=== PATIENT | female | born 1970 | race American Indian/Alaskan Native ===

== ENCOUNTER 2021-08-02 15:20 | Inpatient (IN) | payer BC ==
[2021-08-02] MEDS ORDERED: ACETAMINOPHEN 500 MG TAB PO STA (15:44)
--- NOTE | 2021-08-02 15:45 | Event Note ---
ED Screening Note Date of service: 08/02/21 Time: 15:44 ED Screening Note: Patient complains of weakness, nausea, and cough for 4 days Tested for Covid by her PCP, however results were not back Febrile 100.3 and tachycardia noted She does admit to decreased taste Pulse ox 93% on room air This initial assessment/diagnostic orders/clinical plan/treatment(s) is/are subject to change based on patients health status, clinical progression and re- assessment by fellow clinical providers in the ED. Further treatment and workup at subsequent clinical providers discretion. Patient/guardian urged not to elope from the ED as their condition may be serious if not clinically assessed and managed. Initial orders include: Labs Chest x-ray
[2021-08-02 16:12] LABS: Basophils % (Auto) 0.3 % (0.0-1.8); Eosinophils % (Auto) 0.1 % (0.0-4.3); Hematocrit 54.1 % (30.3-42.9); Hemoglobin 17.9 gm/dl (10.1-14.3); Lymphocytes # (Auto) 1.1 K/mm3 (1.2-5.4); Lymphocytes % (Auto) 22.3 % (13.4-35.0); Mean Corpuscular HGB Conc 33 % (30-34); Mean Corpuscular Volume 99 fl (79-97); Monocytes # (Auto) 0.3 K/mm3 (0.0-0.8); Monocytes % (Auto) 5.7 % (0.0-7.3); Platelet Count 230 K/mm3 (140-440); Red Blood Count 5.45 M/mm3 (3.65-5.03); Red Cell Distribution Width 13.9 % (13.2-15.2)
--- NOTE | 2021-08-02 16:25 | XRay Report ---
CHEST 2 VIEWS INDICATION / CLINICAL INFORMATION: cough, fever. COMPARISON: None available. FINDINGS: SUPPORT DEVICES: None. HEART / MEDIASTINUM: Mildly enlarged cardiac silhouette. Evidence of prior median sternotomy. LUNGS / PLEURA: Faint multifocal patchy airspace disease, suspected to represent infection. No pneumo thorax. ADDITIONAL FINDINGS: No significant additional findings. IMPRESSION: Faint multifocal patchy airspace disease suspected to represent infection. Signer Name: Carlos March MD Signed: 08/02/2021 4:21 PM Workstation Name: [id number]
[2021-08-02 17:10] LABS: Albumin 4.5 g/dL (3.9-5); Calcium 9.2 mg/dL (8.4-10.2)
[2021-08-02] MEDS ORDERED: cefTRIAXone/NS 2 GM/100 ML 2 GM/100 ML BAG IV ONE (17:51)
[2021-08-02] MEDS ORDERED: AZITHROMYCIN/NS 500 MG/250 ML 500 MG/250 ML BAG IV ONE (17:51)
[2021-08-02] MEDS ORDERED: dexAMETHasone 4 MG/ML VIAL IV ONE (17:51)
[2021-08-02] MEDS ORDERED: SODIUM CHLORIDE 0.9% 1000 ML 1,000 ML IV ONE (18:12)
--- NOTE | 2021-08-02 18:14 | Emergency Department Report ---
- General Chief complaint: Weakness Stated complaint: WEAKNESS/DEHYDRATED Time Seen by Provider: 08/02/21 17:28 Source: patient Mode of arrival: Wheelchair Limitations: No Limitations - History of Present Illness Initial comments: 51-year-old female presents to the hospital with generalized weakness, cold sweats, decreased appetite for the past 5 days. Patient's been taking over -the-counter medications without improvement. Decreased food intake but patient try to hydrate with fluids. Patient denies loss of sense of smell. She denies history of pulmonary disease. She is a non-smoking patient denies cough or shortness of breath. She is not vaccinated for Covid. Denies known exposures to Covid. Mild nausea and one episode of loose stools without vomiting. Severity scale (0 -10): 10 - Related Data Previous Rx's Medication Instructions Recorded Last Taken Type Meclizine [Antivert] 25 mg PO TID PRN #20 tablet 08/16/15 Unknown Rx Allergies Allergy/AdvReac Type Severity Reaction Status Date / Time No Known Allergies Allergy Unverified 08/15/15 22:49 ED Review of Systems ROS: Stated complaint: WEAKNESS/DEHYDRATED Other details as noted in HPI Comment: All other systems reviewed and negative ED Past Medical Hx - Past Medical History Previous Medical History?: Yes Additional medical history: hip pain - Surgical History Past Surgical History?: No - Social History Smoking Status: Never Smoker Substance Use Type: None - Medications Home Medications: Home Medications Medication Instructions Recorded Confirmed Last Taken Type Meclizine [Antivert] 25 mg PO TID PRN #20 tablet 08/16/15 Unknown Rx ED Physical Exam - General Limitations: No Limitations - Other Other exam information: General: No acute distress Head: Atraumatic Eyes: normal appearance ENT: Moist mucous membranes Neck: Normal appearance, no midline tenderness Chest: Clear to auscultation bilaterally CV: Mild tachycardia regular rhythm Abdomen: Soft, normal bowel sounds, nontender, nondistended, no rebound or guarding Back: Normal inspection Extremity: Normal inspection, full range of motion Neuro: Alert O x 3, no facial asymmetry, speech clear, no gross motor sensory deficit Psych: Appropriate behavior Skin: No rash ED Course Vital Signs 08/02/21 08/02/21 15:38 15:40 Temperature 100.6 F H Pulse Rate 117 H 16 L Blood Pressure 118/69 O2 Sat by Pulse 93 Oximetry - Reevaluation(s) Reevaluation #1: 08/02/21 18:11 Patient has a room air saturation at rest 88% expresses increased weakness with trying to ambulate ED Medical Decision Making - Lab Data Result diagrams: 08/02/21 15:47 08/02/21 17:59 Lab Results 08/02/21 08/02/21 Range/Units 15:47 15:47 WBC 5.0 (4.5-11.0) K/mm3 RBC 5.45 H (3.65-5.03) M/mm3 Hgb 17.9 H (10.1-14.3) gm/dl Hct 54.1 H (30.3-42.9) % MCV 99 H (79-97) fl MCH 33 H (28-32) pg MCHC 33 (30-34) % RDW 13.9 (13.2-15.2) % Plt Count 230 (140-440) K/mm3 Lymph % (Auto) 22.3 (13.4-35.0) % Orange % (Auto) 5.7 (0.0-7.3) % Eos % (Auto) 0.1 (0.0-4.3) % Baso % (Auto) 0.3 (0.0-1.8) % Lymph # (Auto) 1.1 L (1.2-5.4) K/mm3 Orange # (Auto) 0.3 (0.0-0.8) K/mm3 Eos # (Auto) 0.0 (0.0-0.4) K/mm3 Baso # (Auto) 0.0 (0.0-0.1) K/mm3 Seg Neutrophils % 71.6 H (40.0-70.0) % Seg Neutrophils # 3.6 (1.8-7.7) K/mm3 Sodium 140 (137-145) mmol/L Potassium 4.7 (3.6-5.0) mmol/L Chloride 103.5 (98-107) mmol/L Carbon Dioxide 18 L (22-30) mmol/L Anion Gap 23 mmol/L BUN 18 H (7-17) mg/dL Creatinine 1.3 H (0.6-1.2) mg/dL Estimated GFR 52 ml/min BUN/Creatinine Ratio 14 % Glucose 139 H (65-100) mg/dL Calcium 9.2 (8.4-10.2) mg/dL Total Bilirubin 0.40 (0.1-1.2) mg/dL AST 32 (5-40) units/L ALT 17 (7-56) units/L Alkaline Phosphatase 68 (35-129) units/L Total Protein 7.7 (6.3-8.2) g/dL Albumin 4.5 (3.9-5) g/dL Albumin/Globulin Ratio 1.4 % - Radiology Data Radiology results: report reviewed - Medical Decision Making 51-year-old female presents to the hospital with infectious symptoms for the last 5 days. She presents with fever, hypoxia, and x-ray findings of pneumonia typical of Covid. Patient is unvaccinated. Patient treated with tylenol, Decadron, Rocephin, azithromycin, IV fluids, supplemental oxygenation. Hospitalist to admit Critical Care Time: No Critical care attestation.: If time is entered above; I have spent that time in minutes in the direct care of this critically ill patient, excluding procedure time. ED Disposition Clinical Impression: Generalized weakness, Bilateral pneumonia, Hypoxia, Suspected COVID-19 virus infection Disposition: ADMITTED INPATIENT Is pt being admited?: Yes Condition: Stable Instructions: Bacterial Pneumonia (ED) Time of Disposition: 18:18
--- NOTE | 2021-08-02 18:31 | History and Physical Report ---
History of Present Illness Chief complaint: I don't feel good History of present illness: 51 YO Female with Obesity Hypoventilation Syndrome, OA presents to ED for evaluation. Patient reports "I don't feel good". Patient states that she has experienced generalized weakness, fever, chills, decreased exercise tolerance, muscle aches, malaise over the past 5 days with persistent and worsening symptoms over the same timeframe. Patient transported to [facility] via private vehicle for further care and evaluation of the aforementioned symptoms. The patient was seen and evaluated in the emergency department. All lab and imaging studies reviewed. The patient was found to have a pulse oximetry of 87% with exertion which is consistent with acute hypoxemic respiratory failure. Chest x- ray revealed bilateral pneumonia. Patient admitted to medical floor and initiated on pneumonia protocol as well as coronavirus protocol. Patient denies chest pain, palpitation, skin rash, prolonged travel/immobility, unilateral leg swelling, calf pain, individual/family history of DVT/PE/bleeding/blood clotting disorders. No prior admission for review. All medication listed at time of admission has been reconciled. Advanced care planning conducted in ED. Past History Past Medical History: other (See HPI) Past Surgical History: No surgical history, Other (Reviewed) Social history: , lives with family Family history: hypertension Medications and Allergies Allergies Allergy/AdvReac Type Severity Reaction Status Date / Time No Known Allergies Allergy Unverified 08/15/15 22:49 Home Medications Medication Instructions Recorded Confirmed Last Taken Type Meclizine [Antivert] 25 mg PO TID PRN #20 tablet 08/16/15 Unknown Rx Active Meds: Active Medications Azithromycin (Zithromax/Ns) 500 mg in 250 mls @ 250 mls/hr IV ONCE ONE; Protocol Stop: 08/02/21 18:50 Sodium Chloride (Nacl 0.9% 1000 Ml) 1,000 mls @ 999 mls/hr IV BOLUS ONE Stop: 08/02/21 19:12 Review of Systems Constitutional: fever, fatigue, weakness, malaise Ears, nose, mouth and throat: no ear pain, no tinnitis, no decreased hearing, no nose pain, no nasal congestion, no nasal discharge Cardiovascular: no chest pain, no orthopnea, no lightheadedness Respiratory: no cough, no excessive sputum, no hemoptysis Gastrointestinal: nausea, no abdominal pain, no vomiting, no change in bowel habits, no hematemesis Genitourinary Female: no pelvic pain, no flank pain, no dysuria, no urinary frequency, no urgency Rectal: no pain, no incontinence, no bleeding Musculoskeletal: no neck stiffness, no arm numbness/tingling, no low back pain, no leg numbness/tingling Integumentary: no rash, no pruritis, no redness, no sores, no wounds, no boils Neurological: no head injury, no transient paralysis, no paralysis, no parathesias, no numbness, no tingling, no syncope Psychiatric: no anxiety, no change in sleep habits, no sleep disturbances, no hypersomnia, no change in appetite, no suicidal ideation Endocrine: no cold intolerance, no polyphagia, no excessive thirst, no nocturia Hematologic/Lymphatic: no easy bruising, no lymphadenopathy Allergic/Immunologic: no allergic rhinitis, no persistent infections, no anaphylaxis Exam - Constitutional Vitals: Temp Pulse Resp BP Pulse Ox 100.6 F H 16 L 118/69 93 08/02/21 15:40 08/02/21 15:40 08/02/21 15:38 08/02/21 15:38 General appearance: Present: mild distress, obese - EENT Eyes: Present: PERRL ENT: hearing intact, clear oral mucosa - Neck Neck: Present: supple, normal ROM - Respiratory Respiratory effort: labored, accessory muscle use, stridor Respiratory: bilateral: diminished, rhonchi - Cardiovascular Heart Sounds: Present: S1 & S2. Absent: rub, click - Extremities Extremities: pulses symmetrical, No edema Peripheral Pulses: within normal limits - Abdominal General gastrointestinal: Present: soft, non-tender, non-distended, normal bowel sounds Female genitourinary: Present: normal - Integumentary Integumentary: Present: clear, warm, dry - Musculoskeletal Musculoskeletal: generalized weakness - Psychiatric Psychiatric: appropriate mood/affect, intact judgment & insight - Neurologic Neurologic: CNII-XII intact, moves all extremities Results - Labs CBC & Chem 7: 08/02/21 15:47 08/02/21 17:59 Labs: Abnormal lab results 08/02/21 08/02/21 Range/Units 15:47 15:47 RBC 5.45 H (3.65-5.03) M/mm3 Hgb 17.9 H (10.1-14.3) gm/dl Hct 54.1 H (30.3-42.9) % MCV 99 H (79-97) fl MCH 33 H (28-32) pg Lymph # (Auto) 1.1 L (1.2-5.4) K/mm3 Seg Neutrophils % 71.6 H (40.0-70.0) % Carbon Dioxide 18 L (22-30) mmol/L BUN 18 H (7-17) mg/dL Creatinine 1.3 H (0.6-1.2) mg/dL Glucose 139 H (65-100) mg/dL Assessment and Plan - Patient Problems (1) Acute hypoxemic respiratory failure Current Visit: No Status: Acute Plan to address problem: Chest x-ray, supplemental oxygen, pulse oximetry, nebulizer therapy, noninvasive positive pressure ventilation as clinically indicated. (2) Obesity hypoventilation syndrome Current Visit: No Status: Acute Plan to address problem: Balanced diet, increase physical activity discharge, outpatient pulmonary follow-up for sleep study. (3) Bilateral pneumonia Current Visit: No Status: Acute Plan to address problem: Pneumonia protocol: Chest x-ray, CBC, CMP, IV antibiotic therapy, supplemental oxygen, pulse oximetry, nebulizer therapy, blood culture. (4) Suspected COVID-19 virus infection Current Visit: No Status: Acute Plan to address problem: Coronavirus protocol: IV antibiotic therapy, IV steroid therapy, vitamin C therapy, vitamin D therapy, zinc therapy, contact precautions, isolation precautions (5) 2019 novel coronavirus vaccination not done Current Visit: No Status: Acute Plan to address problem: Patient counseled, patient advised to undergo complete vaccination for coronavirus. Patient acknowledges understanding instructions. (6) DVT prophylaxis Current Visit: No Status: Acute Plan to address problem: SCDs bilateral lower extremities while in bed, prophylactic anticoagulation (7) Advance care planning Current Visit: No Status: Acute Plan to address problem: Disease education conducted, care plan discussed, diagnosis discussed, prognosis discussed, patient is full code, patient knowledges understanding and agreement with care plan. Patient counseled regarding undergoing coronavirus vaccination. +30 min.
[2021-08-02] MEDS ORDERED: ALBUTEROL 2.5 MG/3 ML NEBU IH PRN (18:35)
[2021-08-02] MEDS ORDERED: MECLIZINE 25 MG TAB PO PRN (18:38)
[2021-08-02 18:40] LABS: C-Reactive Protein 2.3 mg/dL (0.00-1.30)
[2021-08-02] MEDS ORDERED: cefTRIAXone/NS 2 GM/100 ML 2 GM/100 ML BAG IV SCH (19:00)
[2021-08-02] MEDS ORDERED: AZITHROMYCIN/NS 500 MG/250 ML 500 MG/250 ML BAG IV SCH (19:30)
[2021-08-02] MEDS: HYDROmorphone 1 MG/1 ML INJ IV PRN (22:57)
[2021-08-02] MEDS: ONDANSETRON 4 MG/2 ML INJ IV PRN (23:05)
[2021-08-02] MEDS: ASCORBIC ACID 500 MG TAB PO SCH (23:13)
[2021-08-02] MEDS: ZINC SULFATE 220 MG CAP PO SCH (23:13)
[2021-08-02] MEDS: methylPREDNISolone Sod Succinate 40 MG/1 ML INJ IV SCH (23:13)
[2021-08-02] MEDS: HEPARIN 5,000 UNIT/1 ML VIAL SUB-Q SCH (23:13)
[2021-08-03] MEDS: cefTRIAXone/NS 2 GM/100 ML 2 GM/100 ML BAG IV SCH (00:45)
[2021-08-03] MEDS: AZITHROMYCIN/NS 500 MG/250 ML 500 MG/250 ML BAG IV SCH (00:54)
[2021-08-03] MEDS: oxyCODONE /ACETAMINOPHEN 5-325MG TAB PO PRN ×2 (01:14→15:22)
[2021-08-03] MEDS: methylPREDNISolone Sod Succinate 40 MG/1 ML INJ IV SCH ×3 (05:52→21:05)
[2021-08-03 06:05] LABS: Basophils % (Auto) 0.3 % (0.0-1.8); Hematocrit 50.5 % (30.3-42.9); Hemoglobin 17.1 gm/dl (10.1-14.3); Lymphocytes # (Auto) 0.6 K/mm3 (1.2-5.4); Lymphocytes % (Auto) 17.2 % (13.4-35.0); Mean Corpuscular HGB Conc 34 % (30-34); Mean Corpuscular Volume 97 fl (79-97); Monocytes # (Auto) 0.1 K/mm3 (0.0-0.8); Platelet Count 224 K/mm3 (140-440); Red Blood Count 5.19 M/mm3 (3.65-5.03); Red Cell Distribution Width 13.9 % (13.2-15.2)
[2021-08-03 06:26] LABS: Calcium 8.8 mg/dL (8.4-10.2)
[2021-08-03] MEDS: ZINC SULFATE 220 MG CAP PO SCH ×2 (09:09→21:05)
[2021-08-03] MEDS: ASCORBIC ACID 500 MG TAB PO SCH ×2 (09:09→21:05)
[2021-08-03] MEDS: HEPARIN 5,000 UNIT/1 ML VIAL SUB-Q SCH ×2 (09:10→21:05)
[2021-08-03] MEDS: CHOLECALCIFEROL (VIT D3) 1000 UNIT (25 mcg) TAB PO SCH (09:10)
[2021-08-03] MEDS: ONDANSETRON 4 MG/2 ML INJ IV PRN ×2 (09:10→21:05)
[2021-08-03] MEDS: ACETAMINOPHEN 325 MG TAB PO PRN (09:12)
--- NOTE | 2021-08-03 11:50 | Consultation ---
History of Present Illness - Reason for Consult Consult date: 08/03/21 b/l pneumonia Requesting physician: CHRISTIANO ENGLISH - History of Present Illness The patient is a 51-year-old female with obesity hypoventilation syndrome, obesity admitted to the hospital with complaints of not feeling well. Also having generalized weakness, fever, chills and muscle aches. Upon evaluation in the ER, chest x-ray revealed bilateral pneumonia, also found to be hypoxic. Low-grade fever. Labs revealed leukopenia, D-dimer 286, ferritin 940, CRP 2.3, LDH 365. Currently receiving empiric antibiotics as well as steroids. Infectious diseases was consulted for additional evaluation. COVID-19 PCR is pending. Review of Systems: reviewed in the chart, unable to obtain, minimize risk of transmission Past History Past Medical History: other (See HPI) Past Surgical History: No surgical history, Other (Reviewed) Social history: , lives with family Family history: hypertension Medications and Allergies Allergies Allergy/AdvReac Type Severity Reaction Status Date / Time No Known Allergies Allergy Unverified 08/15/15 22:49 Home Medications Medication Instructions Recorded Confirmed Last Taken Type Meclizine [Antivert] 25 mg PO TID PRN #20 tablet 08/16/15 08/03/21 Unknown Rx Active Meds: Active Medications Acetaminophen (Acetaminophen 325 Mg Tab) 650 mg PO Q4H PRN PRN Reason: Pain MILD(1-3)/Fever >100.5/RATLIFF Last Admin: 08/03/21 09:12 Dose: 650 mg Documented by: Albuterol (Albuterol 2.5 Mg/3 Ml Nebu) 2.5 mg IH Q4HRT PRN PRN Reason: Shortness Of Breath Ascorbic Acid (Ascorbic Acid 500 Mg Tab) 500 mg PO BID [facility] Last Admin: 08/03/21 09:09 Dose: 500 mg Documented by: Cholecalciferol (Cholecalciferol (Vit D3) 1000 Unit (25 Mcg) Tab) 1,000 unit PO QDAY [facility] Last Admin: 08/03/21 09:10 Dose: 1,000 unit Documented by: Heparin Sodium (Porcine) (Heparin 5,000 Unit/1 Ml Vial) 5,000 unit SUB-Q Q12HR [facility] Last Admin: 08/03/21 09:10 Dose: 5,000 unit Documented by: Hydromorphone HCl (Hydromorphone 1 Mg/1 Ml Inj) 0.5 mg IV Q23H PRN PRN Reason: Pain , Severe (7-10) Last Admin: 08/02/21 22:57 Dose: 0.5 mg Documented by: Ceftriaxone Sodium (Rocephin/Ns 2 Gm/100 Ml) 2 gm in 100 mls @ 200 mls/hr IV Q24H [facility]; Protocol Stop: 08/07/21 01:29 Last Admin: 08/03/21 00:45 Dose: 200 mls/hr Documented by: Azithromycin (Zithromax/Ns) 500 mg in 250 mls @ 250 mls/hr IV Q24H [facility]; Protoc ol Stop: 08/07/21 01:59 Last Admin: 08/03/21 00:54 Dose: 250 mls/hr Documented by: Meclizine HCl (Meclizine 25 Mg Tab) 25 mg PO TID PRN PRN Reason: Vertigo Methylprednisolone Sodium Succinate (Methylprednisolone Sod Succinate 40 Mg/1 Ml Inj) 40 mg IV Q8H [facility] Last Admin: 08/03/21 05:52 Dose: 40 mg Documented by: Ondansetron HCl (Ondansetron 4 Mg/2 Ml Inj) 4 mg IV Q8H PRN PRN Reason: Nausea And Vomiting Last Admin: 08/03/21 09:10 Dose: 4 mg Documented by: Oxycodone/Acetaminophen (Oxycodone /Acetaminophen 5-325mg Tab) 1 tab PO Q12H PRN PRN Reason: Pain, Moderate (4-6) Last Admin: 08/03/21 01:14 Dose: 1 tab Documented by: Sodium Chloride (Sodium Chloride 0.9% 10 Ml Flush Syringe) 10 ml IV BID [facility] Last Admin: 08/03/21 09:17 Dose: 10 ml Documented by: Sodium Chloride (Sodium Chloride 0.9% 10 Ml Flush Syringe) 10 ml IV PRN PRN PRN Reason: LINE FLUSH Zinc Sulfate (Zinc Sulfate 220 Mg Cap) 220 mg PO BID [facility] Last Admin: 08/03/21 09:09 Dose: 220 mg Documented by: Physical Examination - Physical Exam Narrative exam: Physical Exam (reviewed in chart to minimize risk of transmission) Constitutional: deferred Head, Ears, Nose: deferred Eyes: deferred Neck: deferred Oral: deferred Cardiovascular: deferred Respiratory: deferred GI: deferred Musculoskeletal: deferred Skin: deferred Hem/Lymphatic: deferred Psych: deferred Neurological: deferred - Constitutional Vitals: Vital Signs Temp Pulse Resp BP Pulse Ox 98.1 F 88 18 106/59 94 08/03/21 04:56 08/03/21 04:56 08/03/21 04:56 08/03/21 04:56 08/03/21 04:56 Temperature -Last 24 Hours Temperature 98.1 F Temperature 99.9 F Temperature 99.9 F Temperature 100.6 F Results - Labs CBC & Chem 7: 08/03/21 05:52 08/03/21 05:52 Labs: Abnormal lab results 08/02/21 08/02/21 08/02/21 Range/Units 15:47 15:47 17:59 WBC (4.5-11.0) K/mm3 RBC 5.45 H (3.65-5.03) M/mm3 Hgb 17.9 H (10.1-14.3) gm/dl Hct 54.1 H (30.3-42.9) % MCV 99 H (79-97) fl MCH 33 H (28-32) pg Lymph # (Auto) 1.1 L (1.2-5.4) K/mm3 Seg Neutrophils % 71.6 H (40.0-70.0) % D-Dimer 286.28 H (0-234) ng/mlDDU Potassium (3.6-5.0) mmol/L Carbon Dioxide 18 L (22-30) mmol/L BUN 18 H (7-17) mg/dL Creatinine 1.3 H (0.6-1.2) mg/dL Glucose 139 H (65-100) mg/dL Ferritin (10.0-200.0) ng/mL Lactate Dehydrogenase (91-180) units/L C-Reactive Protein (0.00-1.30) mg/dL 08/02/21 08/02/21 08/03/21 Range/Units 17:59 17:59 05:52 WBC 3.7 L (4.5-11.0) K/mm3 RBC 5.19 H (3.65-5.03) M/mm3 Hgb 17.1 H (10.1-14.3) gm/dl Hct 50.5 H (30.3-42.9) % MCV (79-97) fl MCH 33 H (28-32) pg Lymph # (Auto) 0.6 L (1.2-5.4) K/mm3 Seg Neutrophils % 79.5 H (40.0-70.0) % D-Dimer (0-234) ng/mlDDU Potassium (3.6-5.0) mmol/L Carbon Dioxide (22-30) mmol/L BUN (7-17) mg/dL Creatinine (0.6-1.2) mg/dL Glucose 130 H (65-100) mg/dL Ferritin 940.8 H (10.0-200.0) ng/mL Lactate Dehydrogenase 365 H (91-180) units/L C-Reactive Protein 2.30 H (0.00-1.30) mg/dL 08/03/21 Range/Units 05:52 WBC (4.5-11.0) K/mm3 RBC (3.65-5.03) M/mm3 Hgb (10.1-14.3) gm/dl Hct (30.3-42.9) % MCV (79-97) fl MCH (28-32) pg Lymph # (Auto) (1.2-5.4) K/mm3 Seg Neutrophils % (40.0-70.0) % D-Dimer (0-234) ng/mlDDU Potassium 5.1 H (3.6-5.0) mmol/L Carbon Dioxide (22-30) mmol/L BUN 27 H (7-17) mg/dL Creatinine (0.6-1.2) mg/dL Glucose 159 H (65-100) mg/dL Ferritin (10.0-200.0) ng/mL Lactate Dehydrogenase (91-180) units/L C-Reactive Protein (0.00-1.30) mg/dL - Imaging and Cardiology Chest x-ray: report reviewed, image reviewed (Faint b/l patchy pna) Assessment and Plan Cultures: SARS CoV2 PCR: Pending 07/25/2021 blood culture: In process A/P: 51-year-old female with: #Bilateral pneumonia: Likely related to COVID-19, test is pending at this time. #Acute hypoxic respiratory failure: Requiring nasal cannula #Mild OMID: Improved #Obesity #Leukopenia: Likely related to viral illness Recs: f/y COVID-19 PCR Already on steroids, continue for total 10 days IV remdesivir x 5 days ordered given high suspicion for COVID-19 prophylactic anticoagulation based on d-dimer per hospital protocol if procalcitonin is low, abx not needed trend ferritin, d-dimer, CRP every 2-3 days Allyson Bolanos MD, FACP [facility] ([facility] O: [phone] F: [phone]
--- NOTE | 2021-08-03 16:16 | Progress Note ---
Assessment and Plan Assessment and plan: 51-year-old lady with no past medical history who presents with 5 days of weakness, decreased appetite, and body aches who presented to the ED was found to have Covid. #Acute hypoxic respiratory failure -hypoxic on presentation to ED -currently on nasal cannula 3 L/min -will wean as tolerated -continue IV steroids -Likely secondary to COVID pneumonia #Sepsis -UA and BCx ordered -likely 2/2 to COVID infection -currently on azithromycin and rocephin for PNA, will discontinue antibiotics if improved -procalcitonin pending #COVID-19 infection #COVID-19 unvaccinated #COVID-19 pneumonia -COVID PCR positive 08/03 -continue isolation precautions per COVID protocol -continue vitamins and steroid for now -will start Remdesivir -ID following, assistance appreciated Disposition Plan: Continued medical management Total Time Spent with Patient (Minutes): 25 minutes History Interval history: No acute events overnight. Patient reports feeling better. Still continues to have body aches and a mild headache. Hospitalist Physical - Physical exam Narrative exam: GENERAL: Well-developed well-nourished. Lying in bed in no acute distress. HEENT: Nasal cannula at 4 L/min CHEST/LUNGS: Coarse breath sounds bilaterally. HEART/CARDIOVASCULAR: RRR. No murmur, rubs or gallops appreciated. ABDOMEN: +BS. NT/ND. NEURO: No focal motor deficit. Follows all commands and is ambulatory. MUSCULOSKELETAL: No joint effusion EXTREMITIES: No cyanosis, clubbing or edema. PSYCH: Cooperative. - Constitutional Vitals: Temp Pulse Resp BP Pulse Ox 99.2 F 52 L 22 96/53 97 08/03/21 12:02 08/03/21 12:02 08/03/21 12:02 08/03/21 12:02 08/03/21 16:00 General appearance: Present: mild distress, obese - Allied Health Allied health notes reviewed: nursing Results - Labs CBC & Chem 7: 08/03/21 05:52 08/03/21 05:52 Labs: Laboratory Last Values WBC 3.7 K/mm3 (4.5-11.0) L 08/03/21 05:52 RBC 5.19 M/mm3 (3.65-5.03) H 08/03/21 05:52 Hgb 17.1 gm/dl (10.1-14.3) H 08/03/21 05:52 Hct 50.5 % (30.3-42.9) H 08/03/21 05:52 MCV 97 fl (79-97) 08/03/21 05:52 MCH 33 pg (28-32) H 08/03/21 05:52 MCHC 34 % (30-34) 08/03/21 05:52 RDW 13.9 % (13.2-15.2) 08/03/21 05:52 Plt Count 224 K/mm3 (140-440) 08/03/21 05:52 Lymph % (Auto) 17.2 % (13.4-35.0) 08/03/21 05:52 Dickson % (Auto) 3.0 % (0.0-7.3) 08/03/21 05:52 Eos % (Auto) 0.0 % (0.0-4.3) 08/03/21 05:52 Baso % (Auto) 0.3 % (0.0-1.8) 08/03/21 05:52 Lymph # (Auto) 0.6 K/mm3 (1.2-5.4) L 08/03/21 05:52 Dickson # (Auto) 0.1 K/mm3 (0.0-0.8) 08/03/21 05:52 Eos # (Auto) 0.0 K/mm3 (0.0-0.4) 08/03/21 05:52 Baso # (Auto) 0.0 K/mm3 (0.0-0.1) 08/03/21 05:52 Seg Neutrophils % 79.5 % (40.0-70.0) H 08/03/21 05:52 Seg Neutrophils # 2.9 K/mm3 (1.8-7.7) 08/03/21 05:52 D-Dimer 286.28 ng/mlDDU (0-234) H 08/02/21 17:59 Sodium 141 mmol/L (137-145) 08/03/21 05:52 Potassium 5.1 mmol/L (3.6-5.0) H 08/03/21 05:52 Chloride 105.9 mmol/L (98-107) 08/03/21 05:52 Carbon Dioxide 24 mmol/L (22-30) 08/03/21 05:52 Anion Gap 16 mmol/L 08/03/21 05:52 BUN 27 mg/dL (7-17) H 08/03/21 05:52 Creatinine 1.2 mg/dL (0.6-1.2) 08/03/21 05:52 Estimated GFR 57 ml/min 08/03/21 05:52 BUN/Creatinine Ratio 23 % 08/03/21 05:52 Glucose 159 mg/dL (65-100) H 08/03/21 05:52 Calcium 8.8 mg/dL (8.4-10.2) 08/03/21 05:52 Ferritin 940.8 ng/mL (10.0-200.0) H 08/02/21 17:59 Total Bilirubin 0.40 mg/dL (0.1-1.2) 08/02/21 15:47 AST 32 units/L (5-40) 08/02/21 15:47 ALT 17 units/L (7-56) 08/02/21 15:47 Alkaline Phosphatase 68 units/L (35-129) 08/02/21 15:47 Lactate Dehydrogenase 365 units/L (91-180) H 08/02/21 17:59 C-Reactive Protein 2.30 mg/dL (0.00-1.30) H 08/02/21 17:59 Total Protein 7.7 g/dL (6.3-8.2) 08/02/21 15:47 Albumin 4.5 g/dL (3.9-5) 08/02/21 15:47 Albumin/Globulin Ratio 1.4 % 08/02/21 15:47 Procalcitonin 0.47 ng/mL (<0.15) 08/02/21 17:59 Coronavirus (PCR) Positive (Negative) A 08/03/21 Unknown Microbiology: Microbiology 08/02/21 17:59 Peripheral/Venous Blood Culture - Preliminary Culture in Progress 08/02/21 17:59 Peripheral/Venous Blood Culture - Preliminary Culture in Progress Bennett/IV: Voiding Method Toilet Active Medications - Current Medications Current Medications: Generic Name Dose Route Start Last Admin Trade Name Freq PRN Reason Stop Dose Admin Acetaminophen 650 mg 08/02/21 18:35 08/03/21 09:12 Acetaminophen 325 Mg Tab PO 650 mg Q4H PRN Administration Pain MILD(1-3)/Fever >100.5/RATLIFF Albuterol 2.5 mg 08/02/21 18:35 Albuterol 2.5 Mg/3 Ml Nebu IH Q4HRT PRN Shortness Of Breath Ascorbic Acid 500 mg 08/02/21 22:00 08/03/21 09:09 Ascorbic Acid 500 Mg Tab PO 500 mg BID REMY Administration Cholecalciferol 1,000 unit 08/03/21 10:00 08/03/21 09:10 Cholecalciferol (Vit D3) 1000 Unit (25 Mcg) Tab PO 1,000 unit QDAY REMY Administration Heparin Sodium (Porcine) 5,000 unit 08/02/21 22:00 08/03/21 09:10 Heparin 5,000 Unit/1 Ml Vial SUB-Q 5,000 unit Q12HR REMY Administration Hydromorphone HCl 0.5 mg 08/02/21 18:35 08/02/21 22:57 Hydromorphone 1 Mg/1 Ml Inj IV 0.5 mg Q23H PRN Administration Pain , Severe (7-10) Ceftriaxone Sodium 2 gm in 100 mls @ 200 mls/hr 08/03/21 01:00 08/03/21 00:45 Rocephin/Ns 2 Gm/100 Ml IV 08/07/21 01:29 200 mls/hr Q24H REMY Administration Protocol Azithromycin 500 mg in 250 mls @ 250 mls/hr 08/03/21 01:00 08/03/21 00:54 Zithromax/Ns IV 08/07/21 01:59 250 mls/hr Q24H REMY Administration Protocol REMDESIVIR 200 mg/ Sodium 250 mls @ 500 mls/hr 08/03/21 17:00 Chloride IV 08/03/21 17:30 ONCE@1700 NR REMDESIVIR 100 mg/ Sodium 250 mls @ 500 mls/hr 08/04/21 21:00 Chloride IV 08/07/21 21:29 Q24HR@2100 REMY Meclizine HCl 25 mg 08/02/21 18:38 Meclizine 25 Mg Tab PO TID PRN Vertigo Methylprednisolone Sodium Succinate 40 mg 08/02/21 22:00 08/03/21 15:29 Methylprednisolone Sod Succinate 40 Mg/1 Ml Inj IV 40 mg Q8H REMY Administration Ondansetron HCl 4 mg 08/02/21 18:35 08/03/21 09:10 Ondansetron 4 Mg/2 Ml Inj IV 4 mg Q8H PRN Administration Nausea And Vomiting Oxycodone/Acetaminophen 1 tab 08/02/21 18:35 08/03/21 15:22 Oxycodone /Acetaminophen 5-325mg Tab PO 1 tab Q12H PRN Administration Pain, Moderate (4-6) Sodium Chloride 10 ml 08/02/21 22:00 08/03/21 09:17 Sodium Chloride 0.9% 10 Ml Flush Syringe IV 10 ml BID REMY Administration Sodium Chloride 10 ml 08/02/21 18:35 Sodium Chloride 0.9% 10 Ml Flush Syringe IV PRN PRN LINE FLUSH Sodium Chloride 50 ml 08/04/21 21:00 Sodium Chloride 0.9% 50 Ml Ivpb IV 08/07/21 21:01 Q24HR@2100 REMY Sodium Chloride 50 ml 08/03/21 17:00 Sodium Chloride 0.9% 50 Ml Ivpb IV 08/03/21 17:01 Q24HR@1700 REMY Zinc Sulfate 220 mg 08/02/21 22:00 08/03/21 09:09 Zinc Sulfate 220 Mg Cap PO 220 mg BID REMY Administration
[2021-08-03] MEDS ORDERED: REMDESIVIR 200 MG in SODIUM CHLORIDE 0.9% 250ML 250 ML IV NR (17:00)
[2021-08-03] MEDS ORDERED: SODIUM CHLORIDE 0.9% 50 ML IVPB IV SCH (17:00)
[2021-08-03] MEDS: HYDROmorphone 1 MG/1 ML INJ IV PRN (21:13)
[2021-08-04] MEDS: cefTRIAXone/NS 2 GM/100 ML 2 GM/100 ML BAG IV SCH (01:00)
[2021-08-04] MEDS: AZITHROMYCIN/NS 500 MG/250 ML 500 MG/250 ML BAG IV SCH (01:24)
[2021-08-04] MEDS: HYDROmorphone 1 MG/1 ML INJ IV PRN ×2 (05:16→14:38)
[2021-08-04] MEDS: methylPREDNISolone Sod Succinate 40 MG/1 ML INJ IV SCH ×3 (05:17→23:48)
[2021-08-04 07:14] LABS: Hemoglobin 16.4 gm/dl (10.1-14.3); Mean Corpuscular HGB Conc 34 % (30-34); Mean Corpuscular Volume 96 fl (79-97); Platelet Count 242 K/mm3 (140-440); Red Blood Count 5.01 M/mm3 (3.65-5.03)
[2021-08-04 07:32] LABS: Alanine Aminotransferase 15 units/L (7-56); Albumin 3.5 g/dL (3.9-5); BUN/Creatinine Ratio 37; Blood Urea Nitrogen 33 mg/dL (7-17); Calcium 8.7 mg/dL (8.4-10.2); Hemolysis Index 9
--- NOTE | 2021-08-04 07:49 | Progress Note ---
Assessment and Plan Assessment and plan: 51-year-old lady with no past medical history who presents with 5 days of weakness, decreased appetite, and body aches who presented to the ED was found to have COVID. #Acute hypoxic respiratory failure -hypoxic on presentation to ED -currently on nasal cannula 3 L/min -will wean as tolerated -continue IV steroids -Likely secondary to COVID pneumonia #Sepsis -afebrile, WBC improved -UA ordered -BCx NGTD x 24hrs -likely 2/2 to COVID infection -currently on azithromycin and rocephin for PNA, will discontinue antibiotics if improved after 48hrs -procalcitonin 0.47 #COVID-19 infection #COVID-19 unvaccinated #COVID-19 pneumonia -COVID PCR positive 08/03 -continue isolation precautions per COVID protocol -continue vitamins and steroid for now -Remdesivir (2 of 5) -ID following, assistance appreciated #Nausea and vomiting -Likely secondary to above infection -No abdominal symptoms -As needed Zofran Disposition Plan: Continue medical management Total Time Spent with Patient (Minutes): 20 minutes History Interval history: No acute events overnight. Patient reports feeling better. She still continues to be nauseous and had one episode of vomiting this morning. Hospitalist Physical - Physical exam Narrative exam: GENERAL: Well-developed well-nourished. Lying in bed in no acute distress. HEENT: Nasal cannula at 3 L/min CHEST/LUNGS: Coarse breath sounds bilaterally. HEART/CARDIOVASCULAR: RRR. No murmur, rubs or gallops appreciated. ABDOMEN: +BS. NT/ND. EXTREMITIES: No cyanosis, clubbing or edema. PSYCH: Cooperative. - Constitutional Vitals: Temp Pulse Resp BP Pulse Ox 98.5 F 80 20 105/56 94 08/04/21 05:04 08/04/21 05:04 08/04/21 05:04 08/04/21 05:04 08/04/21 05:04 General appearance: Present: mild distress, obese Results - Labs CBC & Chem 7: 08/04/21 07:00 08/04/21 07:00 Labs: Laboratory Last Values WBC 5.8 K/mm3 (4.5-11.0) 08/04/21 07:00 RBC 5.01 M/mm3 (3.65-5.03) 08/04/21 07:00 Hgb 16.4 gm/dl (10.1-14.3) H 08/04/21 07:00 Hct 48.0 % (30.3-42.9) H 08/04/21 07:00 MCV 96 fl (79-97) 08/04/21 07:00 MCH 33 pg (28-32) H 08/04/21 07:00 MCHC 34 % (30-34) 08/04/21 07:00 RDW 14.0 % (13.2-15.2) 08/04/21 07:00 Plt Count 242 K/mm3 (140-440) 08/04/21 07:00 Lymph % (Auto) 17.2 % (13.4-35.0) 08/03/21 05:52 Hall % (Auto) 3.0 % (0.0-7.3) 08/03/21 05:52 Eos % (Auto) 0.0 % (0.0-4.3) 08/03/21 05:52 Baso % (Auto) 0.3 % (0.0-1.8) 08/03/21 05:52 Lymph # (Auto) 0.6 K/mm3 (1.2-5.4) L 08/03/21 05:52 Hall # (Auto) 0.1 K/mm3 (0.0-0.8) 08/03/21 05:52 Eos # (Auto) 0.0 K/mm3 (0.0-0.4) 08/03/21 05:52 Baso # (Auto) 0.0 K/mm3 (0.0-0.1) 08/03/21 05:52 Seg Neutrophils % 79.5 % (40.0-70.0) H 08/03/21 05:52 Seg Neutrophils # 2.9 K/mm3 (1.8-7.7) 08/03/21 05:52 D-Dimer 286.28 ng/mlDDU (0-234) H 08/02/21 17:59 Sodium 141 mmol/L (137-145) 08/04/21 07:00 Potassium 4.8 mmol/L (3.6-5.0) 08/04/21 07:00 Chloride 107.0 mmol/L (98-107) 08/04/21 07:00 Carbon Dioxide 26 mmol/L (22-30) 08/04/21 07:00 Anion Gap 13 mmol/L 08/04/21 07:00 BUN 33 mg/dL (7-17) H 08/04/21 07:00 Creatinine 0.9 mg/dL (0.6-1.2) 08/04/21 07:00 Estimated GFR > 60 ml/min 08/04/21 07:00 BUN/Creatinine Ratio 37 % 08/04/21 07:00 Glucose 143 mg/dL (65-100) H 08/04/21 07:00 Calcium 8.7 mg/dL (8.4-10.2) 08/04/21 07:00 Ferritin 940.8 ng/mL (10.0-200.0) H 08/02/21 17:59 Total Bilirubin 0.30 mg/dL (0.1-1.2) 08/04/21 07:00 AST 27 units/L (5-40) 08/04/21 07:00 ALT 15 units/L (7-56) 08/04/21 07:00 Alkaline Phosphatase 59 units/L (35-129) 08/04/21 07:00 Lactate Dehydrogenase 365 units/L (91-180) H 08/02/21 17:59 C-Reactive Protein 2.30 mg/dL (0.00-1.30) H 08/02/21 17:59 Total Protein 7.2 g/dL (6.3-8.2) 08/04/21 07:00 Albumin 3.5 g/dL (3.9-5) L 08/04/21 07:00 Albumin/Globulin Ratio 0.9 % 08/04/21 07:00 Procalcitonin 0.47 ng/mL (<0.15) 08/02/21 17:59 Coronavirus (PCR) Positive (Negative) A 08/03/21 Unknown Microbiology: Microbiology 08/02/21 17:59 Peripheral/Venous Blood Culture - Preliminary NO GROWTH AFTER 24 HOURS 08/02/21 17:59 Peripheral/Venous Blood Culture - Preliminary NO GROWTH AFTER 24 HOURS Bennett/IV: Voiding Method Toilet Active Medications - Current Medications Current Medications: Generic Name Dose Route Start Last Admin Trade Name Freq PRN Reason Stop Dose Admin Acetaminophen 650 mg 08/02/21 18:35 08/03/21 09:12 Acetaminophen 325 Mg Tab PO 650 mg Q4H PRN Administration Pain MILD(1-3)/Fever >100.5/RATLIFF Albuterol 2.5 mg 08/02/21 18:35 Albuterol 2.5 Mg/3 Ml Nebu IH Q4HRT PRN Shortness Of Breath Ascorbic Acid 500 mg 08/02/21 22:00 08/03/21 21:05 Ascorbic Acid 500 Mg Tab PO 500 mg BID REMY Administration Cholecalciferol 1,000 unit 08/03/21 10:00 08/03/21 09:10 Cholecalciferol (Vit D3) 1000 Unit (25 Mcg) Tab PO 1,000 unit QDAY REMY Administration Enoxaparin Sodium 30 mg 08/04/21 10:00 Enoxaparin 30 Mg/0.3 Ml Inj SUB-Q QDAY [facility] Protocol Hydromorphone HCl 0.5 mg 08/02/21 18:35 08/04/21 05:16 Hydromorphone 1 Mg/1 Ml Inj IV 0.5 mg Q23H PRN Administration Pain , Severe (7-10) Ceftriaxone Sodium 2 gm in 100 mls @ 200 mls/hr 08/03/21 01:00 08/04/21 02:28 Rocephin/Ns 2 Gm/100 Ml IV 08/07/21 01:29 Infused Q24H [facility] Infusion Protocol Azithromycin 500 mg in 250 mls @ 250 mls/hr 08/03/21 01:00 08/04/21 02:29 Zithromax/Ns IV 08/07/21 01:59 Infused Q24H [facility] Infusion Protocol REMDESIVIR 100 mg/ Sodium 250 mls @ 500 mls/hr 08/04/21 21:00 Chloride IV 08/07/21 21:29 Q24HR@2100 [facility] Meclizine HCl 25 mg 08/02/21 18:38 Meclizine 25 Mg Tab PO TID PRN Vertigo Methylprednisolone Sodium Succinate 40 mg 08/02/21 22:00 08/04/21 05:17 Methylprednisolone Sod Succinate 40 Mg/1 Ml Inj IV 40 mg Q8H REMY Administration Ondansetron HCl 4 mg 08/02/21 18:35 08/03/21 21:05 Ondansetron 4 Mg/2 Ml Inj IV 4 mg Q8H PRN Administration Nausea And Vomiting Oxycodone/Acetaminophen 1 tab 08/02/21 18:35 08/03/21 15:22 Oxycodone /Acetaminophen 5-325mg Tab PO 1 tab Q12H PRN Administration Pain, Moderate (4-6) Sodium Chloride 10 ml 08/02/21 22:00 08/03/21 21:06 Sodium Chloride 0.9% 10 Ml Flush Syringe IV 10 ml BID REMY Administration Sodium Chloride 10 ml 08/02/21 18:35 Sodium Chloride 0.9% 10 Ml Flush Syringe IV PRN PRN LINE FLUSH Sodium Chloride 50 ml 08/04/21 21:00 Sodium Chloride 0.9% 50 Ml Ivpb IV 08/07/21 21:01 Q24HR@2100 REMY Zinc Sulfate 220 mg 08/02/21 22:00 08/03/21 21:05 Zinc Sulfate 220 Mg Cap PO 220 mg BID REMY Administration
[2021-08-04] MEDS: CHOLECALCIFEROL (VIT D3) 1000 UNIT (25 mcg) TAB PO SCH (09:50)
[2021-08-04] MEDS: ASCORBIC ACID 500 MG TAB PO SCH ×2 (09:50→23:47)
[2021-08-04] MEDS: ENOXAPARIN 40 MG/0.4 ML INJ SUB-Q SCH (09:50)
[2021-08-04] MEDS: ZINC SULFATE 220 MG CAP PO SCH ×2 (09:50→23:46)
[2021-08-04] MEDS ORDERED: ENOXAPARIN 30 MG/0.3 ML INJ SUB-Q SCH (10:00)
--- NOTE | 2021-08-04 14:12 | Progress Note ---
Assessment and Plan Cultures: SARS CoV2 PCR: Positive 07/25/2021 blood culture: No growth A/P: 51-year-old female with: #Bilateral pneumonia secondary to COVID-19: hypoxic requiring admission, oxygen and steroids. #Acute hypoxic respiratory failure: Requiring nasal cannula #Mild OMID: Improved #Obesity #Leukopenia: Likely related to viral illness Recs: on steroids, continue for total 10 days IV remdesivir, D2 prophylactic anticoagulation based on d-dimer per hospital protocol Procalcitonin moderately elevated, complete 5 days of empiric antibiotics trend d-dimer, CRP every 2-3 days Allyson Bolanos MD, FACP [facility] ([facility] O: [phone] F: [phone] Subjective Date of service: 08/04/21 Interval history: Afebrile. Remains on oxygen with nasal cannula. Procalcitonin 0.38. Objective - Exam Narrative Exam: Physical Exam (reviewed in chart to minimize risk of transmission) Constitutional: deferred Head, Ears, Nose: deferred Eyes: deferred Neck: deferred Oral: deferred Cardiovascular: deferred Respiratory: deferred GI: deferred Musculoskeletal: deferred Skin: deferred Hem/Lymphatic: deferred Psych: deferred Neurological: deferred - Constitutional Vitals: Vital Signs Temp Pulse Resp BP Pulse Ox 98.5 F 80 20 105/56 94 08/04/21 05:04 08/04/21 05:04 08/04/21 05:04 08/04/21 05:04 08/04/21 08:10 Temperature -Last 24 Hours Temperature 98.5 F Temperature 98.0 F Temperature 98.6 F - Labs CBC & Chem 7: 08/04/21 07:00 08/04/21 07:00 Labs: Abnormal lab results 08/03/21 08/04/21 08/04/21 Range/Units Unknown 07:00 07:00 Hgb 16.4 H (10.1-14.3) gm/dl Hct 48.0 H (30.3-42.9) % MCH 33 H (28-32) pg BUN 33 H (7-17) mg/dL Glucose 143 H (65-100) mg/dL Albumin 3.5 L (3.9-5) g/dL Coronavirus (PCR) Positive A (Negative)
[2021-08-04] MEDS: ONDANSETRON 4 MG/2 ML INJ IV PRN (14:38)
[2021-08-04] MEDS: oxyCODONE /ACETAMINOPHEN 5-325MG TAB PO PRN (20:51)
[2021-08-04] MEDS: SODIUM CHLORIDE 0.9% 50 ML IVPB IV SCH (23:26)
[2021-08-04] MEDS: REMDESIVIR 100 MG in SODIUM CHLORIDE 0.9% 250ML 250 ML IV SCH (23:26)
[2021-08-05] MEDS: AZITHROMYCIN/NS 500 MG/250 ML 500 MG/250 ML BAG IV SCH (01:11)
[2021-08-05] MEDS: ONDANSETRON 4 MG/2 ML INJ IV PRN ×4 (01:15→22:16)
[2021-08-05] MEDS: HYDROmorphone 1 MG/1 ML INJ IV PRN ×2 (01:27→22:15)
[2021-08-05] MEDS: cefTRIAXone/NS 2 GM/100 ML 2 GM/100 ML BAG IV SCH (02:09)
[2021-08-05] MEDS: methylPREDNISolone Sod Succinate 40 MG/1 ML INJ IV SCH ×3 (05:13→22:58)
--- NOTE | 2021-08-05 07:37 | Progress Note ---
Assessment and Plan Assessment and plan: 51-year-old lady with no past medical history who presents with 5 days of weakness, decreased appetite, and body aches who presented to the ED was found to have COVID. #Acute hypoxic respiratory failure -hypoxic on presentation to ED -currently on nasal cannula 3 L/min -will wean as tolerated -continue IV steroids -Likely secondary to COVID pneumonia #Sepsis -afebrile, WBC improved -UA ordered -BCx NGTD x 48hrs -likely 2/2 to COVID infection vs PNA #COVID-19 infection #COVID-19 unvaccinated #COVID-19 pneumonia -COVID PCR positive 08/03 -continue isolation precautions per COVID protocol -continue vitamins and steroid for now -Remdesivir (3 of 5) -d-dimer normalized, ferritin elevated; will recheck q3d -ID signed off, will re-consult if change in patient status #Pneumonia -procalcitonin 0.3 -will continue azithromycin and rocephin for 5 days total #OMID-resolved -Cr 0.8 today -likely 2/2 to vasomotor nephropathy #Nausea and vomiting -Likely secondary to above infection -No abdominal symptoms -As needed Zofran Disposition Plan: Continue medical management Total Time Spent with Patient (Minutes): 20 minutes History Interval history: No acute events overnight. Being unable to keep food down and feeling more tired today. Hospitalist Physical - Physical exam Narrative exam: GENERAL: Well-developed well-nourished. Lying in bed in no acute distress. HEENT: Nasal cannula at 3 L/min CHEST/LUNGS: Coarse breath sounds bilaterally. HEART/CARDIOVASCULAR: RRR. No murmur, rubs or gallops appreciated. ABDOMEN: + Overactive BS. NT/ND. EXTREMITIES: No cyanosis, clubbing or edema. PSYCH: Cooperative. - Constitutional Vitals: Temp Pulse Resp BP Pulse Ox 98.0 F 80 20 120/67 95 08/05/21 04:36 08/04/21 21:49 08/05/21 04:36 08/05/21 04:36 08/04/21 21:54 General appearance: Present: mild distress, obese Results - Labs CBC & Chem 7: 08/05/21 10:38 08/05/21 10:38 Labs: Laboratory Last Values WBC 5.8 K/mm3 (4.5-11.0) 08/04/21 07:00 RBC 5.01 M/mm3 (3.65-5.03) 08/04/21 07:00 Hgb 16.4 gm/dl (10.1-14.3) H 08/04/21 07:00 Hct 48.0 % (30.3-42.9) H 08/04/21 07:00 MCV 96 fl (79-97) 08/04/21 07:00 MCH 33 pg (28-32) H 08/04/21 07:00 MCHC 34 % (30-34) 08/04/21 07:00 RDW 14.0 % (13.2-15.2) 08/04/21 07:00 Plt Count 242 K/mm3 (140-440) 08/04/21 07:00 Lymph % (Auto) 17.2 % (13.4-35.0) 08/03/21 05:52 Young % (Auto) 3.0 % (0.0-7.3) 08/03/21 05:52 Eos % (Auto) 0.0 % (0.0-4.3) 08/03/21 05:52 Baso % (Auto) 0.3 % (0.0-1.8) 08/03/21 05:52 Lymph # (Auto) 0.6 K/mm3 (1.2-5.4) L 08/03/21 05:52 Young # (Auto) 0.1 K/mm3 (0.0-0.8) 08/03/21 05:52 Eos # (Auto) 0.0 K/mm3 (0.0-0.4) 08/03/21 05:52 Baso # (Auto) 0.0 K/mm3 (0.0-0.1) 08/03/21 05:52 Seg Neutrophils % 79.5 % (40.0-70.0) H 08/03/21 05:52 Seg Neutrophils # 2.9 K/mm3 (1.8-7.7) 08/03/21 05:52 D-Dimer 286.28 ng/mlDDU (0-234) H 08/02/21 17:59 Sodium 141 mmol/L (137-145) 08/04/21 07:00 Potassium 4.8 mmol/L (3.6-5.0) 08/04/21 07:00 Chloride 107.0 mmol/L (98-107) 08/04/21 07:00 Carbon Dioxide 26 mmol/L (22-30) 08/04/21 07:00 Anion Gap 13 mmol/L 08/04/21 07:00 BUN 33 mg/dL (7-17) H 08/04/21 07:00 Creatinine 0.9 mg/dL (0.6-1.2) 08/04/21 07:00 Estimated GFR > 60 ml/min 08/04/21 07:00 BUN/Creatinine Ratio 37 % 08/04/21 07:00 Glucose 143 mg/dL (65-100) H 08/04/21 07:00 Calcium 8.7 mg/dL (8.4-10.2) 08/04/21 07:00 Ferritin 940.8 ng/mL (10.0-200.0) H 08/02/21 17:59 Total Bilirubin 0.30 mg/dL (0.1-1.2) 08/04/21 07:00 AST 27 units/L (5-40) 08/04/21 07:00 ALT 15 units/L (7-56) 08/04/21 07:00 Alkaline Phosphatase 59 units/L (35-129) 08/04/21 07:00 Lactate Dehydrogenase 365 units/L (91-180) H 08/02/21 17:59 C-Reactive Protein 2.30 mg/dL (0.00-1.30) H 08/02/21 17:59 Total Protein 7.2 g/dL (6.3-8.2) 08/04/21 07:00 Albumin 3.5 g/dL (3.9-5) L 08/04/21 07:00 Albumin/Globulin Ratio 0.9 % 08/04/21 07:00 Procalcitonin 0.38 ng/mL (<0.15) 08/04/21 07:00 Coronavirus (PCR) Positive (Negative) A 08/03/21 Unknown Microbiology: Microbiology 08/02/21 17:59 Peripheral/Venous Blood Culture - Preliminary NO GROWTH AFTER 48 HOURS 08/02/21 17:59 Peripheral/Venous Blood Culture - Preliminary NO GROWTH AFTER 48 HOURS Bennett/IV: Voiding Method Bedside Commode Active Medications - Current Medications Current Medications: Generic Name Dose Route Start Last Admin Trade Name Freq PRN Reason Stop Dose Admin Acetaminophen 650 mg 08/02/21 18:35 08/03/21 09:12 Acetaminophen 325 Mg Tab PO 650 mg Q4H PRN Administration Pain MILD(1-3)/Fever >100.5/RATLIFF Albuterol 2.5 mg 08/02/21 18:35 Albuterol 2.5 Mg/3 Ml Nebu IH Q4HRT PRN Shortness Of Breath Ascorbic Acid 500 mg 08/02/21 22:00 08/04/21 23:47 Ascorbic Acid 500 Mg Tab PO 500 mg BID REMY Administration Cholecalciferol 1,000 unit 08/03/21 10:00 08/04/21 09:50 Cholecalciferol (Vit D3) 1000 Unit (25 Mcg) Tab PO 1,000 unit QDAY REMY Administration Enoxaparin Sodium 40 mg 08/04/21 10:00 08/04/21 09:50 Enoxaparin 40 Mg/0.4 Ml Inj SUB-Q 40 mg QDAY@1000 REMY Administration Hydromorphone HCl 0.5 mg 08/02/21 18:35 08/05/21 01:27 Hydromorphone 1 Mg/1 Ml Inj IV 0.5 mg Q23H PRN Administration Pain , Severe (7-10) Ceftriaxone Sodium 2 gm in 100 mls @ 200 mls/hr 08/03/21 01:00 08/05/21 02:09 Rocephin/Ns 2 Gm/100 Ml IV 08/07/21 01:29 200 mls/hr Q24H REMY Administration Protocol Azithromycin 500 mg in 250 mls @ 250 mls/hr 08/03/21 01:00 08/05/21 01:11 Zithromax/Ns IV 08/07/21 01:59 250 mls/hr Q24H REMY Administration Protocol REMDESIVIR 100 mg/ Sodium 250 mls @ 500 mls/hr 08/04/21 21:00 08/04/21 23:26 Chloride IV 08/07/21 21:29 500 mls/hr Q24HR@2100 REMY Administration Meclizine HCl 25 mg 08/02/21 18:38 Meclizine 25 Mg Tab PO TID PRN Vertigo Methylprednisolone Sodium Succinate 40 mg 08/02/21 22:00 08/05/21 05:13 Methylprednisolone Sod Succinate 40 Mg/1 Ml Inj IV 40 mg Q8H REMY Administration Ondansetron HCl 4 mg 08/04/21 12:48 08/05/21 01:15 Ondansetron 4 Mg/2 Ml Inj IV 4 mg Q6H PRN Administration Nausea And Vomiting Oxycodone/Acetaminophen 1 tab 08/02/21 18:35 08/04/21 20:51 Oxycodone /Acetaminophen 5-325mg Tab PO 1 tab Q12H PRN Administration Pain, Moderate (4-6) Sodium Chloride 10 ml 08/02/21 22:00 08/04/21 23:27 Sodium Chloride 0.9% 10 Ml Flush Syringe IV 10 ml BID REMY Administration Sodium Chloride 10 ml 08/02/21 18:35 Sodium Chloride 0.9% 10 Ml Flush Syringe IV PRN PRN LINE FLUSH Sodium Chloride 50 ml 08/04/21 21:00 08/04/21 23:26 Sodium Chloride 0.9% 50 Ml Ivpb IV 08/07/21 21:01 50 ml Q24HR@2100 REMY Administration Zinc Sulfate 220 mg 08/02/21 22:00 08/04/21 23:46 Zinc Sulfate 220 Mg Cap PO 220 mg BID REMY Administration
[2021-08-05] MEDS: CHOLECALCIFEROL (VIT D3) 1000 UNIT (25 mcg) TAB PO SCH (09:39)
[2021-08-05] MEDS: oxyCODONE /ACETAMINOPHEN 5-325MG TAB PO PRN (09:39)
[2021-08-05] MEDS: ENOXAPARIN 40 MG/0.4 ML INJ SUB-Q SCH (09:40)
[2021-08-05] MEDS: ASCORBIC ACID 500 MG TAB PO SCH ×2 (09:40→22:13)
[2021-08-05] MEDS: ZINC SULFATE 220 MG CAP PO SCH ×2 (09:40→22:13)
[2021-08-05 10:57] LABS: Hematocrit 47.7 % (30.3-42.9); Hemoglobin 15.9 gm/dl (10.1-14.3); Mean Corpuscular HGB Conc 33 % (30-34); Mean Corpuscular Volume 97 fl (79-97); Platelet Count 305 K/mm3 (140-440); Red Blood Count 4.93 M/mm3 (3.65-5.03); Red Cell Distribution Width 14.3 % (13.2-15.2)
[2021-08-05 11:24] LABS: Alanine Aminotransferase 16 units/L (7-56); Albumin 3.8 g/dL (3.9-5); BUN/Creatinine Ratio 38; Blood Urea Nitrogen 30 mg/dL (7-17); Hemolysis Index 43
--- NOTE | 2021-08-05 11:42 | Progress Note ---
Assessment and Plan Cultures: SARS CoV2 PCR: Positive 07/25/2021 blood culture: No growth A/P: 51-year-old female with: #Bilateral pneumonia secondary to COVID-19: hypoxic requiring admission, oxygen and steroids. #Acute hypoxic respiratory failure: Requiring nasal cannula #Mild OMID: Improved #Obesity #Leukopenia: Likely related to viral illness Recs: on steroids, continue for total 10 days IV remdesivir, D3 of 5 prophylactic anticoagulation based on d-dimer per hospital protocol Procalcitonin moderately elevated, complete 5 days of empiric antibiotics trend d-dimer, CRP every 2-3 days ID will sign off. Please reconsult as needed. Allyson Bolanos MD, FACP [facility] ([facility] O: [phone] F: [phone] Subjective Date of service: 08/05/21 Interval history: No fever. Remains on oxygen by nasal cannula at 5 L/min. Objective - Exam Narrative Exam: Physical Exam (reviewed in chart to minimize risk of transmission) Constitutional: deferred Head, Ears, Nose: deferred Eyes: deferred Neck: deferred Oral: deferred Cardiovascular: deferred Respiratory: deferred GI: deferred Musculoskeletal: deferred Skin: deferred Hem/Lymphatic: deferred Psych: deferred Neurological: deferred - Constitutional Vitals: Vital Signs Temp Pulse Resp BP Pulse Ox 98.0 F 80 20 120/67 95 08/05/21 04:36 08/04/21 21:49 08/05/21 09:00 08/05/21 04:36 08/05/21 09:08 Temperature -Last 24 Hours Temperature 98.0 F Temperature 97.6 F - Labs CBC & Chem 7: 08/05/21 10:38 08/05/21 10:38 Labs: Abnormal lab results 08/05/21 08/05/21 08/05/21 Range/Units 10:38 10:38 10:38 Hgb 15.9 H (10.1-14.3) gm/dl Hct 47.7 H (30.3-42.9) % Potassium 5.1 H (3.6-5.0) mmol/L BUN 30 H (7-17) mg/dL Glucose 143 H (65-100) mg/dL Ferritin 1437.0 H (10.0-200.0) ng/mL Albumin 3.8 L (3.9-5) g/dL
[2021-08-05] MEDS: ACETAMINOPHEN 325 MG TAB PO PRN (16:36)
[2021-08-05] MEDS: REMDESIVIR 100 MG in SODIUM CHLORIDE 0.9% 250ML 250 ML IV SCH (22:13)
[2021-08-05] MEDS: SODIUM CHLORIDE 0.9% 50 ML IVPB IV SCH (22:13)
[2021-08-06] MEDS: cefTRIAXone/NS 2 GM/100 ML 2 GM/100 ML BAG IV SCH (00:06)
[2021-08-06] MEDS: AZITHROMYCIN/NS 500 MG/250 ML 500 MG/250 ML BAG IV SCH (00:07)
[2021-08-06] MEDS: methylPREDNISolone Sod Succinate 40 MG/1 ML INJ IV SCH ×3 (05:54→21:29)
[2021-08-06] MEDS: ONDANSETRON 4 MG/2 ML INJ IV PRN ×3 (05:54→19:22)
[2021-08-06 07:07] LABS: Alanine Aminotransferase 17 units/L (7-56); Albumin 3.5 g/dL (3.9-5); BUN/Creatinine Ratio 30; Blood Urea Nitrogen 24 mg/dL (7-17); Hemolysis Index 2
--- NOTE | 2021-08-06 07:46 | Progress Note ---
Assessment and Plan Assessment and plan: 51-year-old lady with no past medical history who presents with 5 days of weakness, decreased appetite, and body aches who presented to the ED was found to have COVID. #Acute hypoxic respiratory failure -hypoxic on presentation to ED -currently on nasal cannula 3 L/min -will wean as tolerated -continue IV steroids -Likely secondary to COVID pneumonia #Sepsis -resolved -BCx NGTD x 72hrs -likely 2/2 to COVID infection vs PNA #COVID-19 infection #COVID-19 unvaccinated #COVID-19 pneumonia -COVID PCR positive 08/03 -continue isolation precautions per COVID protocol -continue vitamins and steroid for now -Remdesivir (day 4 of 5) -d-dimer normalized, ferritin elevated; will recheck q3d -ID signed off, will re-consult if change in patient status #Pneumonia -procalcitonin 0.3 -will continue azithromycin and rocephin for 5 days total (end date 08/07) #OMID-resolved -Cr 0.8 today -likely 2/2 to vasomotor nephropathy #Nausea and vomiting -Likely secondary to above infection -No abdominal symptoms -As needed Zofran Disposition Plan: Continue medical management Total Time Spent with Patient (Minutes): 20 minutes History Interval history: No acute events overnight. Still nauseous which is relieved by zofran. No other complaints. Hospitalist Physical - Physical exam Narrative exam: GENERAL: Well-developed well-nourished. Lying in bed in no acute distress. HEENT: Nasal cannula at 3 L/min CHEST/LUNGS: Coarse breath sounds bilaterally. HEART/CARDIOVASCULAR: RRR. No murmur, rubs or gallops appreciated. ABDOMEN: + Overactive BS. NT/ND. EXTREMITIES: No cyanosis, clubbing or edema. PSYCH: Cooperative. - Constitutional Vitals: Temp Pulse Resp BP Pulse Ox 98.2 F 97 H 16 131/77 94 08/06/21 04:44 08/05/21 16:03 08/06/21 04:44 08/06/21 04:44 08/05/21 23:56 General appearance: Present: mild distress, obese Results - Labs CBC & Chem 7: 08/05/21 10:38 08/06/21 05:17 Labs: Laboratory Last Values WBC 8.7 K/mm3 (4.5-11.0) 08/05/21 10:38 RBC 4.93 M/mm3 (3.65-5.03) 08/05/21 10:38 Hgb 15.9 gm/dl (10.1-14.3) H 08/05/21 10:38 Hct 47.7 % (30.3-42.9) H 08/05/21 10:38 MCV 97 fl (79-97) 08/05/21 10:38 MCH 32 pg (28-32) 08/05/21 10:38 MCHC 33 % (30-34) 08/05/21 10:38 RDW 14.3 % (13.2-15.2) 08/05/21 10:38 Plt Count 305 K/mm3 (140-440) 08/05/21 10:38 Lymph % (Auto) 17.2 % (13.4-35.0) 08/03/21 05:52 [place] % (Auto) 3.0 % (0.0-7.3) 08/03/21 05:52 Eos % (Auto) 0.0 % (0.0-4.3) 08/03/21 05:52 Baso % (Auto) 0.3 % (0.0-1.8) 08/03/21 05:52 Lymph # (Auto) 0.6 K/mm3 (1.2-5.4) L 08/03/21 05:52 [place] # (Auto) 0.1 K/mm3 (0.0-0.8) 08/03/21 05:52 Eos # (Auto) 0.0 K/mm3 (0.0-0.4) 08/03/21 05:52 Baso # (Auto) 0.0 K/mm3 (0.0-0.1) 08/03/21 05:52 Seg Neutrophils % 79.5 % (40.0-70.0) H 08/03/21 05:52 Seg Neutrophils # 2.9 K/mm3 (1.8-7.7) 08/03/21 05:52 D-Dimer 183.34 ng/mlDDU (0-234) 08/05/21 10:38 Sodium 144 mmol/L (137-145) 08/06/21 05:17 Potassium 5.0 mmol/L (3.6-5.0) 08/06/21 05:17 Chloride 105.7 mmol/L (98-107) 08/06/21 05:17 Carbon Dioxide 21 mmol/L (22-30) L 08/06/21 05:17 Anion Gap 22 mmol/L 08/06/21 05:17 BUN 24 mg/dL (7-17) H 08/06/21 05:17 Creatinine 0.8 mg/dL (0.6-1.2) 08/06/21 05:17 Estimated GFR > 60 ml/min 08/06/21 05:17 BUN/Creatinine Ratio 30 % 08/06/21 05:17 Glucose 138 mg/dL (65-100) H 08/06/21 05:17 Calcium 9.0 mg/dL (8.4-10.2) 08/06/21 05:17 Ferritin 1437.0 ng/mL (10.0-200.0) H 08/05/21 10:38 Total Bilirubin 0.30 mg/dL (0.1-1.2) 08/06/21 05:17 AST 33 units/L (5-40) 08/06/21 05:17 ALT 17 units/L (7-56) 08/06/21 05:17 Alkaline Phosphatase 69 units/L (35-129) 08/06/21 05:17 Lactate Dehydrogenase 365 units/L (91-180) H 08/02/21 17:59 C-Reactive Protein 2.30 mg/dL (0.00-1.30) H 08/02/21 17:59 Total Protein 7.3 g/dL (6.3-8.2) 08/06/21 05:17 Albumin 3.5 g/dL (3.9-5) L 08/06/21 05:17 Albumin/Globulin Ratio 0.9 % 08/06/21 05:17 Procalcitonin 0.38 ng/mL (<0.15) 08/04/21 07:00 Coronavirus (PCR) Positive (Negative) A 08/03/21 Unknown Microbiology: Microbiology 08/02/21 17:59 Peripheral/Venous Blood Culture - Preliminary NO GROWTH AFTER 72 HOURS 08/02/21 17:59 Peripheral/Venous Blood Culture - Preliminary NO GROWTH AFTER 72 HOURS Bennett/IV: Voiding Method Bedside Commode Active Medications - Current Medications Current Medications: Generic Name Dose Route Start Last Admin Trade Name Freq PRN Reason Stop Dose Admin Acetaminophen 650 mg 08/02/21 18:35 08/05/21 16:36 Acetaminophen 325 Mg Tab PO 650 mg Q4H PRN Administration Pain MILD(1-3)/Fever >100.5/RATLIFF Albuterol 2.5 mg 08/02/21 18:35 Albuterol 2.5 Mg/3 Ml Nebu IH Q4HRT PRN Shortness Of Breath Ascorbic Acid 500 mg 08/02/21 22:00 08/05/21 22:13 Ascorbic Acid 500 Mg Tab PO 500 mg BID REMY Administration Cholecalciferol 1,000 unit 08/03/21 10:00 08/05/21 09:39 Cholecalciferol (Vit D3) 1000 Unit (25 Mcg) Tab PO 1,000 unit QDAY REMY Administration Enoxaparin Sodium 40 mg 08/04/21 10:00 08/05/21 09:40 Enoxaparin 40 Mg/0.4 Ml Inj SUB-Q 40 mg QDAY@1000 REMY Administration Hydromorphone HCl 0.5 mg 08/02/21 18:35 08/05/21 22:15 Hydromorphone 1 Mg/1 Ml Inj IV 0.5 mg Q23H PRN Administration Pain , Severe (7-10) Ceftriaxone Sodium 2 gm in 100 mls @ 200 mls/hr 08/03/21 01:00 08/06/21 00:06 Rocephin/Ns 2 Gm/100 Ml IV 08/07/21 01:29 200 mls/hr Q24H REMY Administration Protocol Azithromycin 500 mg in 250 mls @ 250 mls/hr 08/03/21 01:00 08/06/21 00:07 Zithromax/Ns IV 08/07/21 01:59 250 mls/hr Q24H REMY Administration Protocol REMDESIVIR 100 mg/ Sodium 250 mls @ 500 mls/hr 08/04/21 21:00 08/05/21 22:13 Chloride IV 08/07/21 21:29 500 mls/hr Q24HR@2100 REMY Administration Meclizine HCl 25 mg 08/02/21 18:38 Meclizine 25 Mg Tab PO TID PRN Vertigo Methylprednisolone Sodium Succinate 40 mg 08/02/21 22:00 08/06/21 05:54 Methylprednisolone Sod Succinate 40 Mg/1 Ml Inj IV 40 mg Q8H REMY Administration Ondansetron HCl 4 mg 08/04/21 12:48 08/06/21 05:54 Ondansetron 4 Mg/2 Ml Inj IV 4 mg Q6H PRN Administration Nausea And Vomiting Oxycodone/Acetaminophen 1 tab 08/02/21 18:35 08/05/21 09:39 Oxycodone /Acetaminophen 5-325mg Tab PO 1 tab Q12H PRN Administration Pain, Moderate (4-6) Sodium Chloride 10 ml 08/02/21 22:00 08/05/21 22:13 Sodium Chloride 0.9% 10 Ml Flush Syringe IV 10 ml BID REMY Administration Sodium Chloride 10 ml 08/02/21 18:35 Sodium Chloride 0.9% 10 Ml Flush Syringe IV PRN PRN LINE FLUSH Sodium Chloride 50 ml 08/04/21 21:00 08/05/21 22:13 Sodium Chloride 0.9% 50 Ml Ivpb IV 08/07/21 21:01 50 ml Q24HR@2100 REMY Administration Zinc Sulfate 220 mg 08/02/21 22:00 08/05/21 22:13 Zinc Sulfate 220 Mg Cap PO 220 mg BID REMY Administration
[2021-08-06] MEDS: ENOXAPARIN 40 MG/0.4 ML INJ SUB-Q SCH (10:00)
[2021-08-06] MEDS: CHOLECALCIFEROL (VIT D3) 1000 UNIT (25 mcg) TAB PO SCH (10:01)
[2021-08-06] MEDS: ZINC SULFATE 220 MG CAP PO SCH ×2 (10:01→21:29)
[2021-08-06] MEDS: ASCORBIC ACID 500 MG TAB PO SCH ×2 (10:01→21:29)
[2021-08-06] MEDS: HYDROmorphone 1 MG/1 ML INJ IV PRN (11:30)
[2021-08-06] MEDS: REMDESIVIR 100 MG in SODIUM CHLORIDE 0.9% 250ML 250 ML IV SCH (21:28)
[2021-08-06] MEDS: SODIUM CHLORIDE 0.9% 50 ML IVPB IV SCH (21:29)
[2021-08-06] MEDS: oxyCODONE /ACETAMINOPHEN 5-325MG TAB PO PRN (21:29)
[2021-08-07] MEDS: cefTRIAXone/NS 2 GM/100 ML 2 GM/100 ML BAG IV SCH (00:34)
[2021-08-07] MEDS: AZITHROMYCIN/NS 500 MG/250 ML 500 MG/250 ML BAG IV SCH (00:34)
[2021-08-07] MEDS: ONDANSETRON 4 MG/2 ML INJ IV PRN (01:18)
[2021-08-07] MEDS: methylPREDNISolone Sod Succinate 40 MG/1 ML INJ IV SCH ×2 (06:07→18:05)
[2021-08-07] MEDS: ZINC SULFATE 220 MG CAP PO SCH ×2 (10:01→21:21)
[2021-08-07] MEDS: ENOXAPARIN 40 MG/0.4 ML INJ SUB-Q SCH (10:01)
[2021-08-07] MEDS: CHOLECALCIFEROL (VIT D3) 1000 UNIT (25 mcg) TAB PO SCH (10:01)
[2021-08-07] MEDS: ASCORBIC ACID 500 MG TAB PO SCH ×2 (10:01→21:21)
--- NOTE | 2021-08-07 13:37 | Progress Note ---
Assessment and Plan Assessment and plan: 51-year-old lady with no past medical history who presents with 5 days of weakness, decreased appetite, and body aches who presented to the ED was found to have COVID. #Acute hypoxic respiratory failure -currently on nasal cannula 3 L/min -Home O2 eval, will be discharged with home oxygen -will wean as tolerated -continue IV steroids, now tapering -Likely secondary to COVID pneumonia #Sepsis -resolved -BCx NGTD -likely 2/2 to COVID infection vs PNA #COVID-19 infection #COVID-19 unvaccinated #COVID-19 pneumonia -COVID PCR positive 08/03 -continue isolation precautions per COVID protocol -continue vitamins and steroid for now -Remdesivir (day 5 of 5) -d-dimer normalized, ferritin elevated; will recheck q3d -ID signed off, will re-consult if change in patient status #Pneumonia -procalcitonin 0.3 -will continue azithromycin and rocephin for 5 days total (end date 08/07) #OMID-resolved -likely 2/2 to vasomotor nephropathy #Nausea and vomiting -Likely secondary to above infection -No abdominal symptoms -As needed Zofran Disposition Plan: Continue medical management, home 24 to 48 hours Total Time Spent with Patient (Minutes): 20 minutes History Interval history: No acute events overnight. Patient with improved appetite and able to tolerate some foods. Shortness of breath unchanged. Hospitalist Physical - Physical exam Narrative exam: GENERAL: Well-developed well-nourished. Lying in bed in no acute distress. HEENT: Nasal cannula at 3 L/min CHEST/LUNGS: Coarse breath sounds bilaterally. HEART/CARDIOVASCULAR: RRR. No murmur, rubs or gallops appreciated. ABDOMEN: + Overactive BS. NT/ND. EXTREMITIES: No cyanosis, clubbing or edema. PSYCH: Cooperative. - Constitutional Vitals: Temp Pulse Resp BP Pulse Ox 98.4 F 98 H 20 166/88 94 08/07/21 06:02 08/07/21 06:02 08/07/21 06:02 08/07/21 06:02 08/07/21 11:36 General appearance: Present: mild distress, obese Results - Labs CBC & Chem 7: 08/05/21 10:38 08/06/21 05:17 Labs: Laboratory Last Values WBC 8.7 K/mm3 (4.5-11.0) 08/05/21 10:38 RBC 4.93 M/mm3 (3.65-5.03) 08/05/21 10:38 Hgb 15.9 gm/dl (10.1-14.3) H 08/05/21 10:38 Hct 47.7 % (30.3-42.9) H 08/05/21 10:38 MCV 97 fl (79-97) 08/05/21 10:38 MCH 32 pg (28-32) 08/05/21 10:38 MCHC 33 % (30-34) 08/05/21 10:38 RDW 14.3 % (13.2-15.2) 08/05/21 10:38 Plt Count 305 K/mm3 (140-440) 08/05/21 10:38 Lymph % (Auto) 17.2 % (13.4-35.0) 08/03/21 05:52 [place] % (Auto) 3.0 % (0.0-7.3) 08/03/21 05:52 Eos % (Auto) 0.0 % (0.0-4.3) 08/03/21 05:52 Baso % (Auto) 0.3 % (0.0-1.8) 08/03/21 05:52 Lymph # (Auto) 0.6 K/mm3 (1.2-5.4) L 08/03/21 05:52 [place] # (Auto) 0.1 K/mm3 (0.0-0.8) 08/03/21 05:52 Eos # (Auto) 0.0 K/mm3 (0.0-0.4) 08/03/21 05:52 Baso # (Auto) 0.0 K/mm3 (0.0-0.1) 08/03/21 05:52 Seg Neutrophils % 79.5 % (40.0-70.0) H 08/03/21 05:52 Seg Neutrophils # 2.9 K/mm3 (1.8-7.7) 08/03/21 05:52 D-Dimer 183.34 ng/mlDDU (0-234) 08/05/21 10:38 Sodium 144 mmol/L (137-145) 08/06/21 05:17 Potassium 5.0 mmol/L (3.6-5.0) 08/06/21 05:17 Chloride 105.7 mmol/L (98-107) 08/06/21 05:17 Carbon Dioxide 21 mmol/L (22-30) L 08/06/21 05:17 Anion Gap 22 mmol/L 08/06/21 05:17 BUN 24 mg/dL (7-17) H 08/06/21 05:17 Creatinine 0.8 mg/dL (0.6-1.2) 08/06/21 05:17 Estimated GFR > 60 ml/min 08/06/21 05:17 BUN/Creatinine Ratio 30 % 08/06/21 05:17 Glucose 138 mg/dL (65-100) H 08/06/21 05:17 Calcium 9.0 mg/dL (8.4-10.2) 08/06/21 05:17 Ferritin 1437.0 ng/mL (10.0-200.0) H 08/05/21 10:38 Total Bilirubin 0.30 mg/dL (0.1-1.2) 08/06/21 05:17 AST 33 units/L (5-40) 08/06/21 05:17 ALT 17 units/L (7-56) 08/06/21 05:17 Alkaline Phosphatase 69 units/L (35-129) 08/06/21 05:17 Lactate Dehydrogenase 365 units/L (91-180) H 08/02/21 17:59 C-Reactive Protein 2.30 mg/dL (0.00-1.30) H 08/02/21 17:59 Total Protein 7.3 g/dL (6.3-8.2) 08/06/21 05:17 Albumin 3.5 g/dL (3.9-5) L 08/06/21 05:17 Albumin/Globulin Ratio 0.9 % 08/06/21 05:17 Procalcitonin 0.38 ng/mL (<0.15) 08/04/21 07:00 Coronavirus (PCR) Positive (Negative) A 08/03/21 Unknown Microbiology: Microbiology 08/02/21 17:59 Peripheral/Venous Blood Culture - Preliminary NO GROWTH AFTER 4 DAYS 08/02/21 17:59 Peripheral/Venous Blood Culture - Preliminary NO GROWTH AFTER 4 DAYS Bennett/IV: Voiding Method Bedside Commode Active Medications - Current Medications Current Medications: Generic Name Dose Route Start Last Admin Trade Name Freq PRN Reason Stop Dose Admin Acetaminophen 650 mg 08/02/21 18:35 08/05/21 16:36 Acetaminophen 325 Mg Tab PO 650 mg Q4H PRN Administration Pain MILD(1-3)/Fever >100.5/RATLIFF Albuterol 2.5 mg 08/02/21 18:35 Albuterol 2.5 Mg/3 Ml Nebu IH Q4HRT PRN Shortness Of Breath Ascorbic Acid 500 mg 08/02/21 22:00 08/07/21 10:01 Ascorbic Acid 500 Mg Tab PO 500 mg BID REMY Administration Cholecalciferol 1,000 unit 08/03/21 10:00 08/07/21 10:01 Cholecalciferol (Vit D3) 1000 Unit (25 Mcg) Tab PO 1,000 unit QDAY REMY Administration Enoxaparin Sodium 40 mg 08/04/21 10:00 08/07/21 10:01 Enoxaparin 40 Mg/0.4 Ml Inj SUB-Q 40 mg QDAY@1000 REMY Administration Hydromorphone HCl 0.5 mg 08/02/21 18:35 08/06/21 11:30 Hydromorphone 1 Mg/1 Ml Inj IV 0.5 mg Q23H PRN Administration Pain , Severe (7-10) REMDESIVIR 100 mg/ Sodium 250 mls @ 500 mls/hr 08/04/21 21:00 08/06/21 21:28 Chloride IV 08/07/21 21:29 500 mls/hr Q24HR@2100 [facility] Administration Meclizine HCl 25 mg 08/02/21 18:38 Meclizine 25 Mg Tab PO TID PRN Vertigo Methylprednisolone Sodium Succinate 40 mg 08/07/21 18:00 Methylprednisolone Sod Succinate 40 Mg/1 Ml Inj IV Q12H [facility] Ondansetron HCl 4 mg 08/04/21 12:48 08/07/21 01:18 Ondansetron 4 Mg/2 Ml Inj IV 4 mg Q6H PRN Administration Nausea And Vomiting Oxycodone/Acetaminophen 1 tab 08/02/21 18:35 08/06/21 21:29 Oxycodone /Acetaminophen 5-325mg Tab PO 1 tab Q12H PRN Administration Pain, Moderate (4-6) Sodium Chloride 10 ml 08/02/21 22:00 08/07/21 10:02 Sodium Chloride 0.9% 10 Ml Flush Syringe IV 10 ml BID REMY Administration Sodium Chloride 10 ml 08/02/21 18:35 Sodium Chloride 0.9% 10 Ml Flush Syringe IV PRN PRN LINE FLUSH Sodium Chloride 50 ml 08/04/21 21:00 08/06/21 21:29 Sodium Chloride 0.9% 50 Ml Ivpb IV 08/07/21 21:01 50 ml Q24HR@2100 REMY Administration Zinc Sulfate 220 mg 08/02/21 22:00 08/07/21 10:01 Zinc Sulfate 220 Mg Cap PO 220 mg BID REMY Administration
[2021-08-07] MEDS: REMDESIVIR 100 MG in SODIUM CHLORIDE 0.9% 250ML 250 ML IV SCH (21:21)
[2021-08-07] MEDS: SODIUM CHLORIDE 0.9% 50 ML IVPB IV SCH (21:21)
[2021-08-08] MEDS: methylPREDNISolone Sod Succinate 40 MG/1 ML INJ IV SCH ×2 (05:16→17:30)
[2021-08-08 08:54] LABS: Blood Urea Nitrogen 23 mg/dL (7-17); Calcium 8.6 mg/dL (8.4-10.2); Hemolysis Index 12
[2021-08-08 08:59] LABS: BUN/Creatinine Ratio 33
[2021-08-08 09:07] LABS: Hematocrit 47.6 % (30.3-42.9); Hemoglobin 16.4 gm/dl (10.1-14.3); Mean Corpuscular HGB Conc 35 % (30-34); Mean Corpuscular Volume 94 fl (79-97); Platelet Count 387 K/mm3 (140-440); Red Blood Count 5.05 M/mm3 (3.65-5.03); Red Cell Distribution Width 13.8 % (13.2-15.2)
[2021-08-08] MEDS: ASCORBIC ACID 500 MG TAB PO SCH ×2 (09:45→22:39)
[2021-08-08] MEDS: ZINC SULFATE 220 MG CAP PO SCH ×2 (09:45→22:39)
[2021-08-08] MEDS: CHOLECALCIFEROL (VIT D3) 1000 UNIT (25 mcg) TAB PO SCH (09:45)
[2021-08-08] MEDS: ENOXAPARIN 40 MG/0.4 ML INJ SUB-Q SCH (09:45)
--- NOTE | 2021-08-08 12:58 | Progress Note ---
Assessment and Plan Assessment and plan: 51-year-old lady with no past medical history who presents with 5 days of weakness, decreased appetite, and body aches who presented to the ED was found to have COVID. #Acute hypoxic respiratory failure -currently on nasal cannula 5 L/min -Home O2 eval, will be discharged with home oxygen -will wean as tolerated (Solu-Medrol 40 mg q12h) -continue IV steroids, now taper -Likely secondary to COVID pneumonia #Sepsis -resolved -BCx NGTD -likely 2/2 to COVID infection vs PNA #COVID-19 infection #COVID-19 unvaccinated #COVID-19 pneumonia -COVID PCR positive 08/03 -continue isolation precautions per COVID protocol -continue vitamins and steroid for now -Remdesivir completed -d-dimer elevated, ferritin downtrending -ID signed off, will re-consult if change in patient status #Pneumonia -procalcitonin 0.3 -s/p azithromycin and rocephin for 5 days total (end date 08/07) #OMID-resolved -likely 2/2 to vasomotor nephropathy #Nausea and vomiting -Likely secondary to above infection -No abdominal symptoms -As needed Zofran Disposition Plan: Home in 24 to 48 hours Total Time Spent with Patient (Minutes): 20 minutes History Interval history: Patient requiring a higher oxygen requirement overnight. Currently requiring 5 L. Has improved appetite and able to tolerate more foods. Shortness of breath unchanged. Hospitalist Physical - Physical exam Narrative exam: GENERAL: Well-developed well-nourished. Lying in bed in no acute distress. HEENT: Nasal cannula at 5 L/min CHEST/LUNGS: Coarse breath sounds bilaterally. HEART/CARDIOVASCULAR: RRR. No murmur, rubs or gallops appreciated. ABDOMEN: + Overactive BS. NT/ND. EXTREMITIES: No cyanosis, clubbing or edema. PSYCH: Cooperative. - Constitutional Vitals: Temp Pulse Resp BP Pulse Ox 97.7 F 95 H 20 108/63 94 08/08/21 12:28 08/08/21 12:28 08/08/21 06:02 08/08/21 12:28 08/08/21 11:20 General appearance: Present: mild distress, obese Results - Labs CBC & Chem 7: 08/08/21 08:21 08/08/21 08:21 Labs: Laboratory Last Values WBC 10.2 K/mm3 (4.5-11.0) 08/08/21 08:21 RBC 5.05 M/mm3 (3.65-5.03) H 08/08/21 08:21 Hgb 16.4 gm/dl (10.1-14.3) H 08/08/21 08:21 Hct 47.6 % (30.3-42.9) H 08/08/21 08:21 MCV 94 fl (79-97) 08/08/21 08:21 MCH 33 pg (28-32) H 08/08/21 08:21 MCHC 35 % (30-34) H 08/08/21 08: RDW 13.8 % (13.2-15.2) 08/08/21 08:21 Plt Count 387 K/mm3 (140-440) 08/08/21 08:21 Lymph % (Auto) 17.2 % (13.4-35.0) 08/03/21 05:52 [place] % (Auto) 3.0 % (0.0-7.3) 08/03/21 05:52 Eos % (Auto) 0.0 % (0.0-4.3) 08/03/21 05:52 Baso % (Auto) 0.3 % (0.0-1.8) 08/03/21 05:52 Lymph # (Auto) 0.6 K/mm3 (1.2-5.4) L 08/03/21 05:52 [place] # (Auto) 0.1 K/mm3 (0.0-0.8) 08/03/21 05:52 Eos # (Auto) 0.0 K/mm3 (0.0-0.4) 08/03/21 05:52 Baso # (Auto) 0.0 K/mm3 (0.0-0.1) 08/03/21 05:52 Seg Neutrophils % 79.5 % (40.0-70.0) H 08/03/21 05:52 Seg Neutrophils # 2.9 K/mm3 (1.8-7.7) 08/03/21 05:52 D-Dimer 377.90 ng/mlDDU (0-234) H 08/08/21 08:21 Sodium 140 mmol/L (137-145) 08/08/21 08:21 Potassium 4.6 mmol/L (3.6-5.0) 08/08/21 08:21 Chloride 105.7 mmol/L (98-107) 08/08/21 08:21 Carbon Dioxide 21 mmol/L (22-30) L 08/08/21 08:21 Anion Gap 18 mmol/L 08/08/21 08:21 BUN 23 mg/dL (7-17) H 08/08/21 08:21 Creatinine 0.7 mg/dL (0.6-1.2) 08/08/21 08:21 Estimated GFR > 60 ml/min 08/08/21 08:21 BUN/Creatinine Ratio 33 % 08/08/21 08:21 Glucose 130 mg/dL (65-100) H 08/08/21 08:21 Calcium 8.6 mg/dL (8.4-10.2) 08/08/21 08:21 Ferritin 1006.0 ng/mL (10.0-200.0) H 08/08/21 08:21 Total Bilirubin 0.30 mg/dL (0.1-1.2) 08/06/21 05:17 AST 33 units/L (5-40) 08/06/21 05:17 ALT 17 units/L (7-56) 08/06/21 05:17 Alkaline Phosphatase 69 units/L (35-129) 08/06/21 05:17 Lactate Dehydrogenase 365 units/L (91-180) H 08/02/21 17:59 C-Reactive Protein 2.30 mg/dL (0.00-1.30) H 08/02/21 17:59 Total Protein 7.3 g/dL (6.3-8.2) 08/06/21 05:17 Albumin 3.5 g/dL (3.9-5) L 08/06/21 05:17 Albumin/Globulin Ratio 0.9 % 08/06/21 05:17 Procalcitonin 0.38 ng/mL (<0.15) 08/04/21 07:00 Coronavirus (PCR) Positive (Negative) A 08/03/21 Unknown Microbiology: Microbiology 08/02/21 17:59 Peripheral/Venous Blood Culture - Final NO GROWTH AFTER 5 DAYS 08/02/21 17:59 Peripheral/Venous Blood Culture - Final NO GROWTH AFTER 5 DAYS Bennett/IV: Voiding Method Bedside Commode Active Medications - Current Medications Current Medications: Generic Name Dose Route Start Last Admin Trade Name Freq PRN Reason Stop Dose Admin Acetaminophen 650 mg 08/02/21 18:35 08/05/21 16:36 Acetaminophen 325 Mg Tab PO 650 mg Q4H PRN Administration Pain MILD(1-3)/Fever >100.5/RATLIFF Albuterol 2.5 mg 08/02/21 18:35 Albuterol 2.5 Mg/3 Ml Nebu IH Q4HRT PRN Shortness Of Breath Ascorbic Acid 500 mg 08/02/21 22:00 08/08/21 09:45 Ascorbic Acid 500 Mg Tab PO 500 mg BID REMY Administration Cholecalciferol 1,000 unit 08/03/21 10:00 08/08/21 09:45 Cholecalciferol (Vit D3) 1000 Unit (25 Mcg) Tab PO 1,000 unit QDAY REMY Administration Enoxaparin Sodium 40 mg 08/04/21 10:00 08/08/21 09:45 Enoxaparin 40 Mg/0.4 Ml Inj SUB-Q 40 mg QDAY@1000 REMY Administration Hydromorphone HCl 0.5 mg 08/02/21 18:35 08/06/21 11:30 Hydromorphone 1 Mg/1 Ml Inj IV 0.5 mg Q23H PRN Administration Pain , Severe (7-10) Meclizine HCl 25 mg 08/02/21 18:38 Meclizine 25 Mg Tab PO TID PRN Vertigo Methylprednisolone Sodium Succinate 40 mg 08/07/21 18:00 08/08/21 05:16 Methylprednisolone Sod Succinate 40 Mg/1 Ml Inj IV 40 mg Q12H REMY Administration Ondansetron HCl 4 mg 08/04/21 12:48 08/07/21 01:18 Ondansetron 4 Mg/2 Ml Inj IV 4 mg Q6H PRN Administration Nausea And Vomiting Oxycodone/Acetaminophen 1 tab 08/02/21 18:35 08/06/21 21:29 Oxycodone /Acetaminophen 5-325mg Tab PO 1 tab Q12H PRN Administration Pain, Moderate (4-6) Sodium Chloride 10 ml 08/02/21 22:00 08/08/21 09:46 Sodium Chloride 0.9% 10 Ml Flush Syringe IV 10 ml BID REMY Administration Sodium Chloride 10 ml 08/02/21 18:35 Sodium Chloride 0.9% 10 Ml Flush Syringe IV PRN PRN LINE FLUSH Zinc Sulfate 220 mg 08/02/21 22:00 08/08/21 09:45 Zinc Sulfate 220 Mg Cap PO 220 mg BID REMY Administration
[2021-08-09 03:26] LABS: Hematocrit 47.7 % (30.3-42.9); Hemoglobin 16.2 gm/dl (10.1-14.3); Mean Corpuscular HGB Conc 34 % (30-34); Mean Corpuscular Volume 95 fl (79-97); Platelet Count 437 K/mm3 (140-440); Red Blood Count 5.01 M/mm3 (3.65-5.03); Red Cell Distribution Width 13.7 % (13.2-15.2)
[2021-08-09 03:47] LABS: BUN/Creatinine Ratio 33; Blood Urea Nitrogen 26 mg/dL (7-17); Calcium 9.1 mg/dL (8.4-10.2); Hemolysis Index 15
[2021-08-09] MEDS: methylPREDNISolone Sod Succinate 40 MG/1 ML INJ IV SCH ×2 (05:28→19:25)
[2021-08-09] MEDS: CHOLECALCIFEROL (VIT D3) 1000 UNIT (25 mcg) TAB PO SCH (10:05)
[2021-08-09] MEDS: ENOXAPARIN 40 MG/0.4 ML INJ SUB-Q SCH (10:05)
[2021-08-09] MEDS: ASCORBIC ACID 500 MG TAB PO SCH ×2 (10:05→22:38)
[2021-08-09] MEDS: ZINC SULFATE 220 MG CAP PO SCH ×2 (10:05→22:38)
--- NOTE | 2021-08-09 16:15 | Progress Note ---
Assessment and Plan Assessment and plan: 51-year-old lady with no past medical history who presents with 5 days of weakness, decreased appetite, and body aches who presented to the ED was found to have COVID. #Acute hypoxic respiratory failure -currently on high flow 8 L/min; can discharge when oxygen requirements are 5 L nasal cannula or less -Home O2 eval, will be discharged with home oxygen -will wean as tolerated (Solu-Medrol 40 mg q12h) -continue IV steroids, now taper -Likely secondary to COVID pneumonia #Sepsis -resolved -BCx NGTD -likely 2/2 to COVID infection vs PNA #COVID-19 infection #COVID-19 unvaccinated #COVID-19 pneumonia -COVID PCR positive 08/03 -continue isolation precautions per COVID protocol -continue vitamins and steroid for now -Remdesivir completed -d-dimer elevated, ferritin downtrending -ID signed off, will re-consult if change in patient status #Pneumonia -procalcitonin 0.3 -s/p azithromycin and rocephin for 5 days total (end date 08/07) #OMID-resolved -likely 2/2 to vasomotor nephropathy #Nausea and vomiting -Likely secondary to above infection -No abdominal symptoms -As needed Zofran Disposition Plan: Continue medical management Total Time Spent with Patient (Minutes): 35 History Interval history: No acute events overnight. Hospitalist Physical - Constitutional Vitals: Temp Pulse Resp BP Pulse Ox 97.8 F 92 H 22 102/63 94 08/09/21 11:55 08/09/21 11:55 08/09/21 11:55 08/09/21 11:55 08/09/21 15:43 General appearance: Present: no acute distress, obese - EENT Eyes: Present: PERRL, EOM intact ENT: hearing intact, clear oral mucosa, dentition normal - Neck Neck: Present: supple, normal ROM - Respiratory Respiratory effort: normal (On high flow 8 L nasal) - Cardiovascular Rhythm: regular Heart Sounds: Present: S1 & S2 - Extremities Extremities: no ischemia, pulses intact, pulses symmetrical, No edema, normal temperature, normal color Peripheral Pulses: within normal limits - Abdominal General gastrointestinal: soft, non-tender, non-distended, normal bowel sounds - Integumentary Integumentary: Present: clear, warm, dry - Psychiatric Psychiatric: appropriate mood/affect, intact judgment & insight, memory intact, cooperative - Neurologic Neurologic: CNII-XII intact, moves all extremities - Allied Health Allied health notes reviewed: nursing Results - Labs CBC & Chem 7: 08/09/21 01:42 08/09/21 01:42 Labs: Laboratory Last Values WBC 9.6 K/mm3 (4.5-11.0) 08/09/21 01:42 RBC 5.01 M/mm3 (3.65-5.03) 08/09/21 01:42 Hgb 16.2 gm/dl (10.1-14.3) H 08/09/21 01:42 Hct 47.7 % (30.3-42.9) H 08/09/21 01:42 MCV 95 fl (79-97) 08/09/21 01:42 MCH 32 pg (28-32) 08/09/21 01:42 MCHC 34 % (30-34) 08/09/21 01:42 RDW 13.7 % (13.2-15.2) 08/09/21 01:42 Plt Count 437 K/mm3 (140-440) 08/09/21 01:42 Lymph % (Auto) 17.2 % (13.4-35.0) 08/03/21 05:52 [place] % (Auto) 3.0 % (0.0-7.3) 08/03/21 05:52 Eos % (Auto) 0.0 % (0.0-4.3) 08/03/21 05:52 Baso % (Auto) 0.3 % (0.0-1.8) 08/03/21 05:52 Lymph # (Auto) 0.6 K/mm3 (1.2-5.4) L 08/03/21 05:52 [place] # (Auto) 0.1 K/mm3 (0.0-0.8) 08/03/21 05:52 Eos # (Auto) 0.0 K/mm3 (0.0-0.4) 08/03/21 05:52 Baso # (Auto) 0.0 K/mm3 (0.0-0.1) 08/03/21 05:52 Seg Neutrophils % 79.5 % (40.0-70.0) H 08/03/21 05:52 Seg Neutrophils # 2.9 K/mm3 (1.8-7.7) 08/03/21 05:52 D-Dimer 377.90 ng/mlDDU (0-234) H 08/08/21 08:21 Sodium 142 mmol/L (137-145) 08/09/21 01:42 Potassium 4.9 mmol/L (3.6-5.0) 08/09/21 01:42 Chloride 107.9 mmol/L (98-107) H 08/09/21 01:42 Carbon Dioxide 18 mmol/L (22-30) L 08/09/21 01:42 Anion Gap 21 mmol/L 08/09/21 01:42 BUN 26 mg/dL (7-17) H 08/09/21 01:42 Creatinine 0.8 mg/dL (0.6-1.2) 08/09/21 01:42 Estimated GFR > 60 ml/min 08/09/21 01:42 BUN/Creatinine Ratio 33 % 08/09/21 01:42 Glucose 145 mg/dL (65-100) H 08/09/21 01:42 Calcium 9.1 mg/dL (8.4-10.2) 08/09/21 01:42 Ferritin 1006.0 ng/mL (10.0-200.0) H 08/08/21 08:21 Total Bilirubin 0.30 mg/dL (0.1-1.2) 08/06/21 05:17 AST 33 units/L (5-40) 08/06/21 05:17 ALT 17 units/L (7-56) 08/06/21 05:17 Alkaline Phosphatase 69 units/L (35-129) 08/06/21 05:17 Lactate Dehydrogenase 365 units/L (91-180) H 08/02/21 17:59 C-Reactive Protein 2.30 mg/dL (0.00-1.30) H 08/02/21 17:59 Total Protein 7.3 g/dL (6.3-8.2) 08/06/21 05:17 Albumin 3.5 g/dL (3.9-5) L 08/06/21 05:17 Albumin/Globulin Ratio 0.9 % 08/06/21 05:17 Procalcitonin 0.38 ng/mL (<0.15) 08/04/21 07:00 Coronavirus (PCR) Positive (Negative) A 08/03/21 Unknown Bennett/IV: Voiding Method Bedside Commode Active Medications - Current Medications Current Medications: Generic Name Dose Route Start Last Admin Trade Name Freq PRN Reason Stop Dose Admin Acetaminophen 650 mg 08/02/21 18:35 08/05/21 16:36 Acetaminophen 325 Mg Tab PO 650 mg Q4H PRN Administration Pain MILD(1-3)/Fever >100.5/RATLIFF Albuterol 2.5 mg 08/02/21 18:35 Albuterol 2.5 Mg/3 Ml Nebu IH Q4HRT PRN Shortness Of Breath Ascorbic Acid 500 mg 08/02/21 22:00 08/09/21 10:05 Ascorbic Acid 500 Mg Tab PO 500 mg BID REMY Administration Cholecalciferol 1,000 unit 08/03/21 10:00 08/09/21 10:05 Cholecalciferol (Vit D3) 1000 Unit (25 Mcg) Tab PO 1,000 unit QDAY REMY Administration Enoxaparin Sodium 40 mg 08/04/21 10:00 08/09/21 10:05 Enoxaparin 40 Mg/0.4 Ml Inj SUB-Q 40 mg QDAY@1000 REMY Administration Hydromorphone HCl 0.5 mg 08/02/21 18:35 08/06/21 11:30 Hydromorphone 1 Mg/1 Ml Inj IV 0.5 mg Q23H PRN Administration Pain , Severe (7-10) Meclizine HCl 25 mg 08/02/21 18:38 Meclizine 25 Mg Tab PO TID PRN Vertigo Methylprednisolone Sodium Succinate 40 mg 08/07/21 18:00 08/09/21 05:28 Methylprednisolone Sod Succinate 40 Mg/1 Ml Inj IV 40 mg Q12H REMY Administration Ondansetron HCl 4 mg 08/04/21 12:48 08/07/21 01:18 Ondansetron 4 Mg/2 Ml Inj IV 4 mg Q6H PRN Administration Nausea And Vomiting Oxycodone/Acetaminophen 1 tab 08/02/21 18:35 08/06/21 21:29 Oxycodone /Acetaminophen 5-325mg Tab PO 1 tab Q12H PRN Administration Pain, Moderate (4-6) Sodium Chloride 10 ml 08/02/21 22:00 08/09/21 10:05 Sodium Chloride 0.9% 10 Ml Flush Syringe IV 10 ml BID REMY Administration Sodium Chloride 10 ml 08/02/21 18:35 Sodium Chloride 0.9% 10 Ml Flush Syringe IV PRN PRN LINE FLUSH Zinc Sulfate 220 mg 08/02/21 22:00 08/09/21 10:05 Zinc Sulfate 220 Mg Cap PO 220 mg BID REMY Administration Nutrition/Malnutrition Assess - Dietary Evaluation Nutrition/Malnutrition Findings: Nutrition Notes Start: 08/09/21 10:33 Freq: Status: Active Protocol: Document 08/09/21 10:33 KEARA (Rec: 08/09/21 11:18 KEARA [id number]) Nutrition Notes Need for Assessment generated from: LOS Initial or Follow up Assessment Other Pertinent Diagnosis Breathing difficulty, COVID-19 positive Current Diet Cardiac Diet Labs/Tests 08/09: Cl 107.9, CO2 18, BUN 26, Glu 145. Pertinent Medications 08/09: Reviewed, Vit C, Vit D3 , Zn. Height 5 ft 2 in Weight 82 kg [place] Body Weight (kg) 50.00 BMI 33.0 Weight Status Obese Subjective/Other Information Pt refused meals (0% PO), but MD states that appetite is improving. PO intake is difficult due to SOB, but condition is improving. 1 BM per day reported. Percent of energy/protein needs met: Cardiac Diet provides sufficient energy/protein needs (2230 Kcal/85 g). Burn Absent Trauma Absent GI Symptoms Nausea Food Allergy No Skin Integrity/Comment Integumentary; clear,warm, dry . Current % PO Poor (25-49%) Minimum of two criteria No physical signs of malnutrition #1 Nutrition Diagnosis Inadequate energy intake Comments: PO intake is difficult due to SOB, but condition is improving and Pt is starting to accept meals. Etiology pneumonia, as consequence of COVID-19 As Evidenced by Signs and Symptoms SOB, Nausea, and MD diagnosis Diagnosis Progress(for reassessment Improved documentation) Is patient on ventilator? No Is Patient Ambulatory and/or Out of Bed Yes REE-([facility]-ambulatory/OOB) [ 9328.606 [id number]] Kcal/Kg value to use for calculation 27 Approximate Energy Requirements Using 2214 kcal/Kg Calculation Used for Recommendations Kcal/kg Additional Notes Protein: 1.0-1.2 g/Kg/day; 50- 60 gr/day; 200-240 Kcal/day ( from IBW). Fluids: 1.0 ml/Kcal/day or as per MD. Nutrition Intervention Change Diet Order: Continue Cardiac Diet as prescribed. Add Ensure Max Protein supplements Add Supplement/Snack (indicate name/kcal 2- 11 fl oz Ensure Max Protein /protein ) Provides kCal: 300 Provides Protein (gm) 60 Goal #1 Support energy/protein needs, while improving acceptance and % intake of PO meals. Goal #2 Maintain body weight within +/ -3% of actual BWt during LOS. Goal #3 Reach and maintain acceptable chemistry lab values during LOS. Follow-Up By: 08/12/21 Additional Comments Continue monitor acceptance, % intake of meals, and BM. - Attestation Statement I have reviewed and agreed w/ Malnutrition eval & tx plan: Yes
[2021-08-10] MEDS: methylPREDNISolone Sod Succinate 40 MG/1 ML INJ IV SCH ×2 (05:43→17:50)
[2021-08-10 09:40] LABS: Hematocrit 50.1 % (30.3-42.9); Hemoglobin 16.7 gm/dl (10.1-14.3); Mean Corpuscular HGB Conc 33 % (30-34); Mean Corpuscular Volume 96 fl (79-97); Platelet Count 477 K/mm3 (140-440); Red Cell Distribution Width 13.6 % (13.2-15.2)
[2021-08-10] MEDS: ENOXAPARIN 40 MG/0.4 ML INJ SUB-Q SCH (09:55)
[2021-08-10] MEDS: ASCORBIC ACID 500 MG TAB PO SCH (09:55)
[2021-08-10] MEDS: ZINC SULFATE 220 MG CAP PO SCH (09:55)
[2021-08-10] MEDS: CHOLECALCIFEROL (VIT D3) 1000 UNIT (25 mcg) TAB PO SCH (09:56)
[2021-08-10 09:59] LABS: BUN/Creatinine Ratio 30; Blood Urea Nitrogen 24 mg/dL (7-17); Hemolysis Index 23
[2021-08-10 10:32] LABS: Band Neutrophils # (Manual) 0.1 K/mm3; Platelet Estimate Consistent w Auto; RBC Morphology Normal; Total Cells Counted 100
--- NOTE | 2021-08-10 13:32 | Discharge Summary ---
Providers - Providers Date of Admission: 08/02/21 18:35 Date of discharge: 08/10/21 Attending physician: KRISTOPHER BARGER MD 08/02/21 17:53 Consult to Physician [CONS] Urgent Comment: Consulting Provider: JASKARAN WATSON Physician Instructions: Reason For Exam: infiltrates, hypoxia, r/o covid Primary care physician: SUNDAY COSME MD Hospitalization Condition: Stable Pertinent studies: Reviewed. Procedures: None. Hospital course: The patient is a 51-year-old female with no known past medical history who initially presented with 5 days of weakness, decreased appetite, body aches who presented to the ED and was found to have COVID-19 complicated by COVID-19 pneumonia, acute hypoxic respiratory failure, and OMID. The patient received IV steroids to assist with COVID-19 treatment and required oxygen supplementation. The patient's OMID resolved. The patient still requires approximately 4 to 5 L nasal cannula and will be discharged home with home O2. The patient will require an additional 2 days of isolation in order to complete a 10-day iso lation course per CDC guidelines. The patient is safe for discharge home. Disposition: 01 HOME / SELF CARE / HOMELESS Final Discharge Diagnosis (Prints w/discharge instructions): COVID-19 pneumonia; acute hypoxic respiratory failure; OMID Time spent for discharge: 40 Core Measure Documentation - Palliative Care Palliative Care/ Comfort Measures: Not Applicable - Core Measures Any of the following diagnoses?: none - VTE Discharge Requirements Deep Vein Thrombosis/Pulmonary Embolism Present on Admission: No Has pt received <5 days of overlap therapy or INR<2.0: No (Not applicable) Anticoagulant overlap therapy prescribed at discharge: No Contraindication No Overlap Therapy order at DC: Not Indicated - Acute [place] Discharge Requirements Aspirin at discharge: No Reason for no aspirin on DC: Medical contraindication (Not applicable) PILAR/ARB for LVSD if EF <40%: Not Applicable Reason for no PILAR/ARB: Medical contraindication (Not applicable) Beta shanna at discharge: No Reason for no beta shanna on DC: Medical contraindication (Not applicable) Statin for LDL = or >100 mg/dl on DC: Not Applicable Reason for no statin on DC: Medical contraindication (Not applicable) - Heart Failure Discharge Requirements PILAR/ARB for LVSD if EF <40%: Not Applicable Reason for no PILAR/ARB: Medical contraindication (Not applicable) Beta shanna at discharge: No Reason for no beta shanna on DC: Medical contraindication (Not applicable) - Stroke Discharge Requirements Statin for LDL = or >70 mg/dl on DC: Not Applicable Reason for no statin on DC: Not Indicated Anticoag for atrial fib/atrial flutter: Not Applicable Reason for no anticoag for AF/F on DC: Not Indicated Antithrombotic for ischemic stroke: No Reason for no antithrombotic on DC: Not Indicated Exam - Constitutional Vitals: Temp Pulse Resp BP Pulse Ox 98.2 F 95 H 18 89/53 95 08/10/21 05:38 08/10/21 05:38 08/10/21 08:00 08/10/21 05:38 08/10/21 09:00 General appearance: Present: no acute distress, well-nourished - EENT Eyes: Present: PERRL, EOM intact ENT: hearing intact, clear oral mucosa, dentition normal - Neck Neck: Present: supple, normal ROM - Respiratory Respiratory effort: normal (On 5 L nasal cannula) - Cardiovascular Rhythm: regular Heart Sounds: Present: S1 & S2 - Extremities Extremities: no ischemia, pulses intact, pulses symmetrical, No edema, normal temperature, normal color Peripheral Pulses: within normal limits - Abdominal General gastrointestinal: Present: soft, non-tender, non-distended, normal bowel sounds Female genitourinary: Present: deferred - Rectal Rectal Exam: deferred - Integumentary Integumentary: Present: clear, warm, dry - Musculoskeletal Musculoskeletal: strength equal bilaterally - Psychiatric Psychiatric: appropriate mood/affect, intact judgment & insight, memory intact, cooperative - Neurologic Neurologic: CNII-XII intact, moves all extremities - Allied Health Allied health notes reviewed: nursing Plan Health Concerns: Please return to the emergency room if you experience the following: worsening shortness of breath, fevers, chills, weakness, confusion, chest pain/pressure. Assessment: Discharging home with family. Follow up with: SUNDAY COSME MD [Primary Care Provider] - 7 Days Prescriptions: dexAMETHasone [Dexamethasone] 6 mg PO BID 2 Days #4 tablet
[2021-08-10 17:49] VITALS: BP 93/54
== END 2021-08-10 19:39 | disposition home or self-care (01) | DRG 871 ==
LOC: ED 15:20 → 3A 18:35
PROVIDERS: ADMIT Internal Medicine; ATTEND Student in an Organized Health Care Education/Training Program
PROC: XW033E5 Introduction of Remdesivir Anti-infective into Peripheral Vein, Percutaneous Approach, New Technology Group 5 (ICD-10-PCS; principal; 2021-08-03)
DX: A41.9 Sepsis, unspecified organism (principal); U07.1 COVID-19; J96.01 Acute respiratory failure with hypoxia; J12.82 Pneumonia due to coronavirus disease 2019; E66.2 Morbid (severe) obesity with alveolar hypoventilation; N17.9 Acute kidney failure, unspecified; Z82.49 Family history of ischemic heart disease and other diseases of the circulatory system; Z68.33 Body mass index [BMI] 33.0-33.9, adult
CPT/HCPCS: 36415; 71046; 80048; 80053; 82728; 82947; 83615; 83735; 84100; 84145; 85007; 85025; 85027; 85379; 86140; 87040; 94760; G0378; J0456; J0696; J1100; J1170; J1644; J1650; J2405; J2920; J7030; J7050; U0003